=== PATIENT | male | born 1940 | race Asian ===

== ENCOUNTER 2020-04-29 23:01 | Inpatient (IN) | payer OTHER ==
[~2020-04-29] VITALS: Ht 165.1 cm; Wt 54.4 kg
--- NOTE | 2020-04-29 23:10 | NUR ---
ED Nurse Note: Patient came in by ambulamce from a halfway for Anemia (Hemoglobin of 7.1), Pt is awake, alert oriented to self and place. Blood pressure elevated, in no acute distress, afebrile. skin warm and intact, respirations normal.
--- NOTE | 2020-04-29 23:16 | Emergency Room Report ---
History of Present Illness General Chief Complaint: Abnormal Labs Source: Medical Record Present Illness HPI This is an 79-year-old Frisian speaking male coming [facility]. He presents with chief complaint of abnormal lab. His hemoglobin was 7.1. Patient has no complaint. No evidence of active bleeding. No nausea vomiting or diarrhea. No fever chills. Negative Covid test on April 17. No other complaint. 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: Yes - 04/17/20 COVID-19 Screening: Negative COVID-19 COVID-19 Testing Source: [facility] Patient History Past Medical History: see triage record, old chart reviewed, HTN Past Surgical History: other Pertinent Family History: none Social History: Denies: smoking Immunizations: other Reviewed Nursing Documentation: PMH: Agreed; PSxH: Agreed Nursing Documentation-PMH Past Medical History: No History, Except For Hx Hypertension: Yes Hx Neurological Problems: Yes - dementia Review of Systems Eye: Denies: eye pain, blurred vision ENT: Denies: ear pain, nose congestion, throat swelling Respiratory: Denies: cough, shortness of breath Cardiovascular: Denies: chest pain, palpitations Gastrointestinal: Denies: abdominal pain, diarrhea, nausea, vomiting Musculoskeletal: Denies: back pain, joint pain Skin: Denies: rash Neurological: Denies: headache, numbness Endocrine: Denies: increased thirst, increased urine Hematologic/Lymphatic: Denies: easy bruising All Other Systems: negative except mentioned in HPI Physical Exam Vital Signs Date Time Temp Pulse Resp B/P (MAP) Pulse Ox O2 Delivery O2 Flow Rate FiO2 04/29/20 23:04 97.9 82 16 173/80 (111) 94 Room Air Vitals with high blood pressure Sp02 EP Interpretation: reviewed, normal General Appearance: no apparent distress, alert, Chronically Ill Head: normocephalic, atraumatic Eyes: bilateral eye PERRL, bilateral eye EOMI, bilateral eye conjunctivae pale ENT: hearing grossly normal, normal pharynx Neck: full range of motion, supple, no meningismus Respiratory: chest non-tender, lungs clear, normal breath sounds Cardiovascular #1: regular rate, rhythm, no murmur Gastrointestinal: normal bowel sounds, non tender, no mass, no organomegaly, no bruit, non-distended Musculoskeletal: back normal, normal range of motion, gait/station normal Psychiatric: mood/affect normal Medical Decision Making Diagnostic Impression: Primary Impression: Anemia Qualified Codes: D64.9 - Anemia, unspecified Additional Impressions: Hypertension Qualified Codes: I10 - Essential (primary) hypertension Hyperglycemia due to type 2 diabetes mellitus Qualified Codes: E11.65 - Type 2 diabetes mellitus with hyperglycemia ER Course Patient presents with anemia. Unknown cause. Patient received transfusion here. Will admit for further work-up. I contacted Dr. Duff for admission. Last Vital Signs Date Time Temp Pulse Resp B/P (MAP) Pulse Ox O2 Delivery O2 Flow Rate FiO2 04/29/20 23:04 97.9 82 16 173/80 (111) 94 Room Air Status: improved Disposition: ADMITTED INPATIENT Condition: Serious Stew Man MD Apr 29, 2020 23:16
[2020-04-29 23:59] LABS: BASOPHILS % (AUTO) 0.5 % (0.0-2.0); EOSINOPHILS % (AUTO) 0.7 % (0.0-3.0); HEMATOCRIT 23.9 % (42.0-52.0); HEMOGLOBIN 8.4 G/DL (14.2-18.0); LYMPHOCYTES % (AUTO) 17.5 % (20.0-45.0); MEAN CORPUSCULAR VOLUME 95 FL (80-99); MONOCYTES % (AUTO) 5.5 % (1.0-10.0); NEUTROPHILS % (AUTO) 75.8 % (45.0-75.0); PLATELET COUNT 315 K/UL (150-450); RED BLOOD COUNT 2.52 M/UL (4.70-6.10); RED CELL DISTRIBUTION WIDTH 16.8 % (11.6-14.8); WHITE BLOOD COUNT 6.4 K/UL (4.8-10.8)
[2020-04-30] VITALS (7 sets, daily range): BP systolic 151–173; BP diastolic 75–91
--- NOTE | 2020-04-30 00:05 | NUR ---
ED Nurse Note: Spoke with neeru De La Rosa from [employer], regarding patient's condition for admission.
[2020-04-30 00:07] LABS: CREATININE 1.2 MG/DL (0.55-1.30); POTASSIUM 3.9 MMOL/L (3.5-5.1)
[2020-04-30 02:50] LABS: HEMATOCRIT 20.7 % (42.0-52.0); HEMOGLOBIN 7.3 G/DL (14.2-18.0); MEAN CORPUSCULAR VOLUME 95 FL (80-99); PLATELET COUNT 290 K/UL (150-450); RED BLOOD COUNT 2.17 M/UL (4.70-6.10); RED CELL DISTRIBUTION WIDTH 16.2 % (11.6-14.8)
--- NOTE | 2020-04-30 03:34 | NUR ---
ED Nurse Note: Report given to nurse ZAHRAA Lucas.
--- NOTE | 2020-04-30 03:35 | NUR ---
TRANSFER TO FLOOR: Patient transferred to [facility] at room 421-1 via gurney,accompanied by RN and geotechnical field technician. Belongings checked and given to RN. Patient transferred to bed safely. Endorsed to RN.
--- NOTE | 2020-04-30 03:36 | NUR ---
NURSE NOTES: Received telephone report from Parris VITAL from ER.
--- NOTE | 2020-04-30 03:50 | NUR ---
NURSE NOTES: Patient was transported by gurney. VS stable except BP (160s/90s). Belongings checked. Oriented to hospital room. Skin is intact with second RN. Patient is getting blood bag. No symptoms of side effects. No pain or distress noted. Larry intact and draining well. IV right and left AC both intact and patent with PRBC running on right AC. Bed low and locked. Call light within reach. Will continue to monitor
[2020-04-30] MEDS ORDERED: ACTOS15 MG ORAL (04:45)
[2020-04-30] MEDS ORDERED: SERTRALINE HCL25 MG ORAL (04:45)
[2020-04-30] MEDS ORDERED: LIPITOR80 MG ORAL (04:45)
[2020-04-30] MEDS ORDERED: LOSARTAN POTASS25 MG ORAL (04:45)
[2020-04-30] MEDS ORDERED: DONEPEZIL HCL10 MG ORAL (04:45)
[2020-04-30] MEDS ORDERED: FLOMAX0.4 MG ORAL (04:45)
[2020-04-30] MEDS ORDERED: ELIQUIS2.5 MG ORAL (04:45)
[2020-04-30] MEDS ORDERED: NAMENDA10 MG ORAL (04:45)
[2020-04-30] MEDS ORDERED: LINZESS290 MCG PO (04:45)
[2020-04-30] MEDS ORDERED: HUMALOG100 UNIT/1 SUBQ (04:52)
[2020-04-30] MEDS ORDERED: NovoLOG Insulin Flexpen SUBQ SCH ×2 (06:00→06:30)
[2020-04-30] MEDS: NovoLOG Insulin Flexpen SUBQ SCH ×4 (06:20→23:09)
--- NOTE | 2020-04-30 06:25 | NUR ---
NURSE NOTES: Patient finished the first bag of blood. No adverse effect. Will hang second bag.
--- NOTE | 2020-04-30 07:25 | NUR ---
NURSE NOTES: Received pt from ZAHRAA Lucas, pt was resting comfortably, receiving Blood transfusion 200ml/hr, no reaction will monitor, call light w/in reach.
--- NOTE | 2020-04-30 07:30 | NUR ---
NURSE HAND-OFF: Important Events on Shift: Admission, 2 PRBC Patient Status: Stable Diet: CCHO (medium) Pending Orders: [] Pending Results/Labs:[] Pending MD notification:[] Latest Vital Signs: Temperature 97.7 , Pulse 84 , B/P 162 /91 , Respiratory Rate 18 , O2 SAT 98 , Room Air, O2 Flow Rate . Vital Sign Comment: VS stable Latest Pierce Fall Score: 45 Fall Risk: High Risk Safety Measures: Call light Within Reach, Bed Alarm Zone 1, Side Rails Side Rails x2, Bed position Low and Locked. Fall Precautions: Yellow Socks Door Sign Patient Fall Education Report given to Hang VITAL.
--- NOTE | 2020-04-30 08:02 | History & Physical ---
History of Present Illness General Reason for Hospitalization: Abnormal Labs Present Illness HPI HISTORY OF PRESENT ILLNESS: This is an 79-year-old male with history of hypertension who was sent into ED from SNF for evaluation of low hemoglobin. His initial laboratory studies revealed that his hemoglobin was 7.1 on arrival. Patient has no complaints. Patient was reported to test negative for COVID-19 test on 04/17/2020. He received 2 units of transfusions and his hemoglobin improved at this point. He was admitted to the hospital for further management and work-up. He was found to be having persistent hiccups. We will order chest x-ray for evaluation. PAST MEDICAL HISTORY: Hypertension MEDICATIONS: Eliquis, atorvastatin, donepezil, insulin, linaclotide, losartan, memantine, pioglitazone, sertraline, tamsulosin ALLERGIES: No known allergies FAMILY HISTORY: Unknown PERSONAL/SOCIAL HISTORY: Residence of [facility] Allergies: Coded Allergies: No Known Allergies (Unverified , 04/29/20) COVID-19 Screening Contact w/high risk pt: No Experienced COVID-19 symptoms?: No Medication History Scheduled Apixaban (Eliquis*), 2.5 MG ORAL BID, (Reported) Atorvastatin (Lipitor), 40 MG ORAL BEDTIME, (Reported) Donepezil Hcl* (Donepezil Hcl*), 10 MG ORAL BID, (Reported) Losartan Potassium* (Losartan Potassium*), 25 MG ORAL DAILY, (Reported) Memantine Hcl* (Namenda*), 10 MG ORAL DAILY, (Reported) Pioglitazone Hcl* (Actos*), 15 MG ORAL DAILY, (Reported) Sertraline Hcl* (Sertraline Hcl*), 25 MG ORAL DAILY, (Reported) Tamsulosin HCl (Flomax), 0.4 MG ORAL DAILY, (Reported) Miscellaneous Medications Insulin Lispro (Humalog), 0 SUBQ, (Reported) Linaclotide (Linzess), 290 MCG PO, (Reported) Patient History Healthcare decision maker Resuscitation status Advanced Directive on File Review of Systems Review of Symptoms General ROS: no weight loss or fever Psychological ROS: no depression or mood changes, no memory loss Ophthalmic ROS: no visual changes or eye irritation ENT ROS: no nasal congestion, hearing loss, dizziness Allergy and Immunology ROS: no allergic symptoms or urticaria Hematological and Lymphatic ROS: no swollen glands, unusual bleeding or bruising Endocrine ROS: no polyuria, polydipsia, weight changes, temperature intolerance Respiratory ROS: no cough, shortness of breath, or wheezing Cardiovascular ROS: no chest pain or dyspnea on exertion Gastrointestinal ROS: denies abdominal pain, bright red blood in stool. Musculoskeletal ROS: no myalgias or arthralgias Neurological ROS: no TIA or stroke symptoms Dermatological ROS: no new or changing skin lesions, rashes or pruritis Physical Exam Physical Exam General appearance: alert, cooperative, no distress, appears stated age Head: Normocephalic, without obvious abnormality, atraumatic Eyes: conjunctivae/corneas clear. PERRL, EOM's intact. Fundi benign Throat: Lips, mucosa, and tongue normal. Teeth and gums normal Neck: supple, symmetrical, trachea midline, no adenopathy, thyroid: not enlarged, symmetric, no tenderness/mass/nodules, no carotid bruit and no JVD Lungs: clear to auscultation bilaterally Heart: regular rate and rhythm, S1, S2 normal, no murmur, click, rub or gallop Abdomen: soft, non-tender. Bowel sounds normal. No masses, no organomegaly Extremities: extremities normal, atraumatic, no cyanosis or edema Pulses: 2+ and symmetric Skin: Skin color, texture, turgor normal. No rashes or lesions Neurologic: Grossly normal Last 24 Hour Vital Signs Date Time Temp Pulse Resp B/P (MAP) Pulse Ox O2 Delivery O2 Flow Rate FiO2 04/30/20 07:38 Room Air 04/30/20 05:13 Room Air 04/30/20 04:00 97.7 84 18 162/91 (114) 98 04/30/20 03:46 98.4 83 16 156/59 100 Room Air 04/30/20 00:37 97.9 16 173/80 94 Room Air 04/29/20 23:04 97.9 82 16 173/80 (111) 94 Room Air Intake and Output 04/29/20 04/30/20 19:00 07:00 Intake Total 500 ml Output Total 800 ml Balance -300 ml Intake Oral 300 ml Other 200 ml Output Urine Total 800 ml # Voids 1 # Bowel Movements 1 Laboratory Tests Test 04/29/20 23:15 04/30/20 02:45 04/30/20 05:53 White Blood Count 6.4 K/UL (4.8-10.8) 7.0 K/UL (4.8-10.8) Red Blood Count 2.52 M/UL (4.70-6.10) L 2.17 M/UL (4.70-6.10) L Hemoglobin 8.4 G/DL (14.2-18.0) L 7.3 G/DL (14.2-18.0) L Hematocrit 23.9 % (42.0-52.0) L 20.7 % (42.0-52.0) L Mean Corpuscular Volume 95 FL (80-99) 95 FL (80-99) Mean Corpuscular Hemoglobin 33.5 PG (27.0-31.0) H 33.4 PG (27.0-31.0) H Mean Corpuscular Hemoglobin Concent 35.2 G/DL (32.0-36.0) 35.1 G/DL (32.0-36.0) Red Cell Distribution Width 16.8 % (11.6-14.8) H 16.2 % (11.6-14.8) H Platelet Count 315 K/UL (150-450) 290 K/UL (150-450) Mean Platelet Volume 6.3 FL (6.5-10.1) L 6.4 FL (6.5-10.1) L Neutrophils (%) (Auto) 75.8 % (45.0-75.0) H % (45.0-75.0) Lymphocytes (%) (Auto) 17.5 % (20.0-45.0) L % (20.0-45.0) Monocytes (%) (Auto) 5.5 % (1.0-10.0) % (1.0-10.0) Eosinophils (%) (Auto) 0.7 % (0.0-3.0) % (0.0-3.0) Basophils (%) (Auto) 0.5 % (0.0-2.0) % (0.0-2.0) Sodium Level 142 MMOL/L (136-145) Potassium Level 3.9 MMOL/L (3.5-5.1) Chloride Level 107 MMOL/L (98-107) Carbon Dioxide Level 29 MMOL/L (21-32) Anion Gap 6 mmol/L (5-15) Blood Urea Nitrogen 24 mg/dL (7-18) H Creatinine 1.2 MG/DL (0.55-1.30) Estimat Glomerular Filtration Rate 58.1 mL/min (>60) Glucose Level 296 MG/DL (74-106) H Calcium Level 9.0 MG/DL (8.5-10.1) Differential Total Cells Counted 100 Neutrophils % (Manual) 78 % (45-75) H Lymphocytes % (Manual) 17 % (20-45) L Monocytes % (Manual) 5 % (1-10) Eosinophils % (Manual) 0 % (0-3) Basophils % (Manual) 0 % (0-2) Band Neutrophils 0 % (0-8) Platelet Estimate Adequate Platelet Morphology Normal Anisocytosis 1+ POC Whole Blood Glucose 229 MG/DL (74-106) H Height (Feet): 5 Height (Inches): 5.00 Weight (Pounds): 120 Medications Current Medications Medications (Trade) Dose Ordered Sig/Maryam Route PRN Reason Start Time Stop Time Status Last Admin Dose Admin Acetaminophen (Tylenol) 650 mg Q6H PRN ORAL Mild Pain (Pain Scale 1-3) 04/30/20 05:00 05/30/20 04:59 Acetaminophen (Tylenol) 650 mg Q6H PRN ORAL Temp >100.5 04/30/20 05:00 05/30/20 04:59 Atorvastatin Calcium (Lipitor) 40 mg BEDTIME ORAL 04/30/20 21:00 07/29/20 20:59 Dextrose (Dextrose 50%) 25 ml Q30M PRN IV Hypoglycemia 04/30/20 05:00 07/29/20 04:59 Dextrose (Dextrose 50%) 50 ml Q30M PRN IV Hypoglycemia 04/30/20 05:00 07/29/20 04:59 Donepezil HCl (Aricept) 10 mg BID ORAL 04/30/20 09:00 05/30/20 08:59 Hydralazine HCl (Apresoline) 50 mg Q4H PRN ORAL For High Blood Pressure BP>160 04/30/20 05:00 07/29/20 04:59 Insulin Aspart (NovoLOG) Q6HR SUBQ 04/30/20 06:00 07/29/20 05:59 04/30/20 06:20 Linaclotide (Linzess) 290 mcg DAILYPRN PRN ORAL Constipation 04/30/20 05:00 07/29/20 04:59 Losartan Potassium (Cozaar) 25 mg DAILY ORAL 04/30/20 09:00 05/30/20 08:59 Memantine (Namenda) 10 mg DAILY ORAL 04/30/20 09:00 05/30/20 08:59 Pioglitazone HCl (Actos) 15 mg DAILY ORAL 04/30/20 09:00 05/30/20 08:59 Sertraline HCl (Zoloft) 25 mg DAILY ORAL 04/30/20 09:00 05/30/20 08:59 Sodium Chloride 1,000 ml @ 10 mls/hr Q24H ONCE IV 04/29/20 23:15 04/30/20 23:14 04/29/20 23:15 Tamsulosin HCl (Flomax) 0.4 mg DAILY ORAL 04/30/20 09:00 05/30/20 08:59 Assessment/Plan Diagnosis Aristes I: #Acute on chronic anemia- r/o GI bleed #HTN- accelerated #HLD #DM #dementia #BPH - admit to inpatient - prbc transfusion - monitor hemoglobin - increase losartan to 100mg daily - continue hydralazine prn - flomax - monitor hemoglobin - GI eval [facility] Hospital declaration I spent 70 minutes on this patient's case, and 35 minutes was dedicated to counseling and/or care coordination. MIPS ([employer]it-based Incentive Payment System) Applicable CPT: 47586, 99007 CHECK ALL THAT ARE MET: Measure #5 (CHF): All ages. Prescribe FELICITA/ARB upon discharge for patients with left ventricular systolic dysfunction. If not, the reason is clearly documented in the medical chart. Measure #8 (CHF): All ages. Prescribe a beta tony upon discharge for patients with left ventricular systolic dysfunction. If not, the reason is clearly documented in the medical chart. Measure #47 Advance care plan or surrogate decision maker documented in the medical record. Measure #130 The provider has documented, updated, or reviewed the patients current medication list and has documented it in the patients note. Measure #374 (All): Send report to referring provider. Measure #407(Sepsis due to MSSA bacteremia): Age 18+ Patient treated with a beta-lactam antibiotic (Nafcillin, Oxacillin or Cefazolin) as definitive therapy. MEDICAL COMPLEXITY High complexity medical decision making (need 2/3 categories) Problem - need 4 points Acute/new problem with new plan for workup (4 points, 1 max) Acute/new problem without additional workup (3 points, 1 max) Unstable chronic problem actively being managed (2 point each, 2 max) Stable chronic problem actively being managed (1 point each, 2 max) Self-limited/transient process (constipation, muscle ache, etc) (1 point each, 2 max) Data - need 4 points Reviewed labs/imaging studies (1 points, 2 max) Independent review of imaging (EKG, xrays, etc) (2 points, 2 max) Discussed case with consult/other MD/RN (2 points, 2 max) High Risk - qualify if have one of the following: Severe exacerbation of acute problem, acute mental status change, IV narcotics, monitoring drug levels (vancomycin, INR, tacrolimus etc) Hermes Duff M.D. Apr 30, 2020 08:02
[2020-04-30] MEDS ORDERED: Sertraline 50mg tab ORAL SCH (09:00)
[2020-04-30] MEDS ORDERED: Losartan 25mg tab ORAL SCH (09:00)
[2020-04-30] MEDS: Donepezil 10mg tab ORAL SCH ×2 (09:04→17:33)
[2020-04-30] MEDS: Memantine 10mg tab ORAL SCH (09:04)
[2020-04-30] MEDS: Tamsulosin 0.4mg cap ORAL SCH (09:04)
[2020-04-30] MEDS: Losartan 50mg tab ORAL SCH (09:05)
[2020-04-30 10:47] LABS: BASOPHILS % (AUTO) 0.6 % (0.0-2.0); EOSINOPHILS % (AUTO) 0.7 % (0.0-3.0); HEMOGLOBIN 11.5 G/DL (14.2-18.0); MEAN CORPUSCULAR VOLUME 91 FL (80-99); MONOCYTES % (AUTO) 5.8 % (1.0-10.0); NEUTROPHILS % (AUTO) 78.9 % (45.0-75.0); PLATELET COUNT 280 K/UL (150-450); RED BLOOD COUNT 3.84 M/UL (4.70-6.10); RED CELL DISTRIBUTION WIDTH 16.4 % (11.6-14.8); WHITE BLOOD COUNT 6.2 K/UL (4.8-10.8)
[2020-04-30 11:21] LABS: ANION GAP 7 mmol/L (5-15); BLOOD UREA NITROGEN 20 mg/dL (7-18); CALCIUM 8.6 MG/DL (8.5-10.1); CARBON DIOXIDE 26 MMOL/L (21-32); CHLORIDE 108 MMOL/L (98-107); CREATININE 0.9 MG/DL (0.55-1.30); SODIUM 141 MMOL/L (136-145)
--- NOTE | 2020-04-30 11:37 | Consultation ---
History of Present Illness General Date patient seen: Apr 30, 2020 Reason for Hospitalization: Abnormal Labs Present Illness HPI 79 year old pleasant male presented from care facility for evaluation of anemia with significant low hemoglobin of 7. admitted, transfused and surgery called to evaluate for possible gi bleed. patient seen, chart reviewed, patient examined. no n/v/f/c. denies bleeding at this time but is aaox2 only. tolerating diet. no diarrhea. no emesis. labs reviewed, exam as below. Allergies: Coded Allergies: No Known Allergies (Unverified , 04/29/20) COVID-19 Screening Contact w/high risk pt: No Experienced COVID-19 symptoms?: No Medication History Scheduled Apixaban (Eliquis*), 2.5 MG ORAL BID, (Reported) Atorvastatin (Lipitor), 40 MG ORAL BEDTIME, (Reported) Donepezil Hcl* (Donepezil Hcl*), 10 MG ORAL BID, (Reported) Losartan Potassium* (Losartan Potassium*), 25 MG ORAL DAILY, (Reported) Memantine Hcl* (Namenda*), 10 MG ORAL DAILY, (Reported) Pioglitazone Hcl* (Actos*), 15 MG ORAL DAILY, (Reported) Sertraline Hcl* (Sertraline Hcl*), 25 MG ORAL DAILY, (Reported) Tamsulosin HCl (Flomax), 0.4 MG ORAL DAILY, (Reported) Miscellaneous Medications Insulin Lispro (Humalog), 0 SUBQ, (Reported) Linaclotide (Linzess), 290 MCG PO, (Reported) Patient History Limited by: language barrier, medical condition History Provided By: Patient, Medical Record, PMD Healthcare decision maker Resuscitation status Advanced Directive on File Past Medical/Surgical History Past Medical/Surgical History: (1) GI bleed (2) Hypertension (3) Hyperglycemia due to type 2 diabetes mellitus (4) Anemia Review of Systems Review of Symptoms General ROS: no weight loss or fever Psychological ROS: no depression or mood changes, no memory loss Ophthalmic ROS: no visual changes or eye irritation ENT ROS: no nasal congestion, hearing loss, dizziness Allergy and Immunology ROS: no allergic symptoms or urticaria Hematological and Lymphatic ROS: no swollen glands, unusual bleeding or bruising Endocrine ROS: no polyuria, polydipsia, weight changes, temperature intolerance Respiratory ROS: no cough, shortness of breath, or wheezing Cardiovascular ROS: no chest pain or dyspnea on exertion Gastrointestinal ROS: denies abdominal pain, bright red blood in stool. Musculoskeletal ROS: no myalgias or arthralgias Neurological ROS: no TIA or stroke symptoms Dermatological ROS: no new or changing skin lesions, rashes or pruritis Physical Exam Physical Exam General appearance: alert, cooperative, no distress, appears stated age Head: Normocephalic, without obvious abnormality, atraumatic Eyes: conjunctivae/corneas clear. PERRL, EOM's intact. Fundi benign Throat: Lips, mucosa, and tongue normal. Teeth and gums normal Neck: supple, symmetrical, trachea midline, no adenopathy, thyroid: not enlarged, symmetric, no tenderness/mass/nodules, no carotid bruit and no JVD Lungs: clear to auscultation bilaterally Heart: regular rate and rhythm, S1, S2 normal, no murmur, click, rub or gallop Abdomen: soft, non-tender. Bowel sounds normal. No masses, no organomegaly Extremities: extremities normal, atraumatic, no cyanosis or edema Pulses: 2+ and symmetric Skin: Skin color, texture, turgor normal. No rashes or lesions Neurologic: Grossly normal Last 24 Hour Vital Signs Date Time Temp Pulse Resp B/P (MAP) Pulse Ox O2 Delivery O2 Flow Rate FiO2 04/30/20 09:05 151/76 04/30/20 07:38 Room Air 04/30/20 05:13 Room Air 04/30/20 04:00 97.7 84 18 162/91 (114) 98 04/30/20 03:46 98.4 83 16 156/59 100 Room Air 04/30/20 00:37 97.9 16 173/80 94 Room Air 04/29/20 23:04 97.9 82 16 173/80 (111) 94 Room Air Intake and Output 04/29/20 04/30/20 19:00 07:00 Intake Total 500 ml Output Total 800 ml Balance -300 ml Intake Oral 300 ml Other 200 ml Output Urine Total 800 ml # Voids 1 # Bowel Movements 1 Laboratory Tests Test 04/29/20 23:15 04/30/20 02:45 04/30/20 05:53 04/30/20 10:00 White Blood Count 6.4 K/UL (4.8-10.8) 7.0 K/UL (4.8-10.8) 6.2 K/UL (4.8-10.8) Red Blood Count 2.52 M/UL (4.70-6.10) L 2.17 M/UL (4.70-6.10) L 3.84 M/UL (4.70-6.10) L Hemoglobin 8.4 G/DL (14.2-18.0) L 7.3 G/DL (14.2-18.0) L 11.5 G/DL (14.2-18.0) #L Hematocrit 23.9 % (42.0-52.0) L 20.7 % (42.0-52.0) L 35.0 % (42.0-52.0) #L Mean Corpuscular Volume 95 FL (80-99) 95 FL (80-99) 91 FL (80-99) Mean Corpuscular Hemoglobin 33.5 PG (27.0-31.0) H 33.4 PG (27.0-31.0) H 30.1 PG (27.0-31.0) Mean Corpuscular Hemoglobin Concent 35.2 G/DL (32.0-36.0) 35.1 G/DL (32.0-36.0) 33.0 G/DL (32.0-36.0) Red Cell Distribution Width 16.8 % (11.6-14.8) H 16.2 % (11.6-14.8) H 16.4 % (11.6-14.8) H Platelet Count 315 K/UL (150-450) 290 K/UL (150-450) 280 K/UL (150-450) Mean Platelet Volume 6.3 FL (6.5-10.1) L 6.4 FL (6.5-10.1) L 5.9 FL (6.5-10.1) L Neutrophils (%) (Auto) 75.8 % (45.0-75.0) H % (45.0-75.0) 78.9 % (45.0-75.0) H Lymphocytes (%) (Auto) 17.5 % (20.0-45.0) L % (20.0-45.0) 14.0 % (20.0-45.0) L Monocytes (%) (Auto) 5.5 % (1.0-10.0) % (1.0-10.0) 5.8 % (1.0-10.0) Eosinophils (%) (Auto) 0.7 % (0.0-3.0) % (0.0-3.0) 0.7 % (0.0-3.0) Basophils (%) (Auto) 0.5 % (0.0-2.0) % (0.0-2.0) 0.6 % (0.0-2.0) Sodium Level 142 MMOL/L (136-145) 141 MMOL/L (136-145) Potassium Level 3.9 MMOL/L (3.5-5.1) 4.0 MMOL/L (3.5-5.1) Chloride Level 107 MMOL/L (98-107) 108 MMOL/L (98-107) H Carbon Dioxide Level 29 MMOL/L (21-32) 26 MMOL/L (21-32) Anion Gap 6 mmol/L (5-15) 7 mmol/L (5-15) Blood Urea Nitrogen 24 mg/dL (7-18) H 20 mg/dL (7-18) H Creatinine 1.2 MG/DL (0.55-1.30) 0.9 MG/DL (0.55-1.30) Estimat Glomerular Filtration Rate 58.1 mL/min (>60) > 60 mL/min (>60) Glucose Level 296 MG/DL (74-106) H 238 MG/DL (74-106) H Calcium Level 9.0 MG/DL (8.5-10.1) 8.6 MG/DL (8.5-10.1) Differential Total Cells Counted 100 Neutrophils % (Manual) 78 % (45-75) H Lymphocytes % (Manual) 17 % (20-45) L Monocytes % (Manual) 5 % (1-10) Eosinophils % (Manual) 0 % (0-3) Basophils % (Manual) 0 % (0-2) Band Neutrophils 0 % (0-8) Platelet Estimate Adequate Platelet Morphology Normal Anisocytosis 1+ POC Whole Blood Glucose 229 MG/DL (74-106) H Phosphorus Level 3.0 MG/DL (2.5-4.9) Magnesium Level 1.7 MG/DL (1.8-2.4) L Height (Feet): 5 Height (Inches): 5.00 Weight (Pounds): 120 Medications Current Medications Medications (Trade) Dose Ordered Sig/Maryam Route PRN Reason Start Time Stop Time Status Last Admin Dose Admin Acetaminophen (Tylenol) 650 mg Q6H PRN ORAL Mild Pain (Pain Scale 1-3) 04/30/20 05:00 05/30/20 04:59 Acetaminophen (Tylenol) 650 mg Q6H PRN ORAL Temp >100.5 04/30/20 05:00 05/30/20 04:59 Atorvastatin Calcium (Lipitor) 40 mg BEDTIME ORAL 04/30/20 21:00 07/29/20 20:59 Dextrose (Dextrose 50%) 25 ml Q30M PRN IV Hypoglycemia 04/30/20 05:00 07/29/20 04:59 Dextrose (Dextrose 50%) 50 ml Q30M PRN IV Hypoglycemia 04/30/20 05:00 07/29/20 04:59 Donepezil HCl (Aricept) 10 mg BID ORAL 04/30/20 09:00 05/30/20 08:59 04/30/20 09:04 Hydralazine HCl (Apresoline) 50 mg Q4H PRN ORAL For High Blood Pressure BP>160 04/30/20 05:00 07/29/20 04:59 Insulin Aspart (NovoLOG) Q6HR SUBQ 04/30/20 06:00 07/29/20 05:59 04/30/20 06:20 Linaclotide (Linzess) 290 mcg DAILYPRN PRN ORAL Constipation 04/30/20 05:00 07/29/20 04:59 Losartan Potassium (Cozaar) 100 mg DAILY ORAL 04/30/20 09:00 05/30/20 08:59 04/30/20 09:05 Memantine (Namenda) 10 mg DAILY ORAL 04/30/20 09:00 05/30/20 08:59 04/30/20 09:04 Pioglitazone HCl (Actos) 15 mg DAILY ORAL 04/30/20 09:00 05/30/20 08:59 04/30/20 09:04 Sertraline HCl (Zoloft) 25 mg DAILY ORAL 04/30/20 09:00 05/30/20 08:59 Sodium Chloride 1,000 ml @ 10 mls/hr Q24H ONCE IV 04/29/20 23:15 04/30/20 23:14 04/29/20 23:15 Tamsulosin HCl (Flomax) 0.4 mg DAILY ORAL 04/30/20 09:00 05/30/20 08:59 04/30/20 09:04 Assessment/Plan Problem List: (1) Hypertension ICD Codes: I10 - Essential (primary) hypertension SNOMED: 02476672, [id number] Qualifiers: Qualified Codes: I10 - Essential (primary) hypertension (2) Hyperglycemia due to type 2 diabetes mellitus ICD Codes: E11.65 - Type 2 diabetes mellitus with hyperglycemia SNOMED: [id number], [id number] Qualifiers: Qualified Codes: E11.65 - Type 2 diabetes mellitus with hyperglycemia (3) Anemia ICD Codes: D64.9 - Anemia, unspecified SNOMED: [id number] Qualifiers: Qualified Codes: D64.9 - Anemia, unspecified (4) GI bleed Assessment & Plan: 79M with significant anemia. as per report history of guiac positive afebrile, HD stable rectal exam without gross blood. transfused prbc and improved comfortable no complaints tolerating diet GI eval for colonoscopy/egd? okay for diet will follow with exam and recs trend labs thank you ICD Codes: K92.2 - Gastrointestinal hemorrhage, unspecified SNOMED: [id number] Arnoldo Oropeza Apr 30, 2020 11:37
[2020-04-30] MEDS: Sertraline 100mg tab ORAL SCH (12:12)
--- NOTE | 2020-04-30 13:25 | Consultation ---
Consult Note Consult Note DATE OF CONSULTATION: 04/30/2020 CONSULTING PHYSICIAN: Gigi Altamirano MD. ATTENDING PHYSICIAN: Dr. Duff REASON FOR CONSULTATION: singultus HISTORY OF PRESENT ILLNESS: This is an 79-year-old male with history of hypertension who was sent into ED from SNF for evaluation of low hemoglobin. His initial laboratory studies revealed that his hemoglobin was 7.1 on arrival. Patient has no complaints. Patient was reported to test negative for COVID-19 test on 04/17/2020. He received 2 units of transfusions and his hemoglobin improved at this point. He was admitted to the hospital for further management and work-up. He was found to be having persistent hiccups. We will order chest x-ray for evaluation. PAST MEDICAL HISTORY: Hypertension MEDICATIONS: Eliquis, atorvastatin, donepezil, insulin, linaclotide, losartan, memantine, pioglitazone, sertraline, tamsulosin ALLERGIES: No known allergies FAMILY HISTORY: Unknown PERSONAL/SOCIAL HISTORY: Residence of [facility] REVIEW OF SYSTEMS: Negative except mentioned in HPI PHYSICAL EXAMINATION: VITAL SIGNS: Blood pressure 151/76, heart rate 79, respiratory rate 18, weight 54 kg, height 165 cm General: Appears NAD in bed with normal work of breathing on room air, persistent hiccups HEENT: Head exam reveals that the head is normocephalic, atraumatic without deformity or unusual swelling. Pupils are PERRLA. CHEST AND LUNGS: Reveals clear, normal, symmetrical breath sounds with no adventitious sounds. CARDIOVASCULAR: Reveals normal S1, S2 without murmurs, rubs, or clicks. ABDOMEN: Soft with no tenderness or organomegaly. RECTAL: Deferred. MUSCULOSKELETAL: There is no tenderness to palpation. Range of motion is normal. NEUROLOGICAL: Alert and oriented x2 , nonfocal LABORATORY DATA: Laboratory testing shows Hgb was 7.3, status post 2 units PRBC, now 11.5. Chemistries show chloride 108, BUN 20, glucose 238, magnesium 1.7 Assessment/Plan 1. Anemia, history of positive guaiac -Seen by surgery -No acute GI bleed -Recommend GI consult for EGD/[place] 2. Persistent singultus -We will order chest x-ray for evaluation -Consider Thorazine if no resolution of singultus - Monitor for hypoxia and provide supplemental oxygen as needed The care for this patient was discussed with my supervising physician. Time spent for this case was approximately 31 minutes. Mikal Horne Apr 30, 2020 13:25
--- NOTE | 2020-04-30 15:07 | Diagnostic Imaging Report ---
EXAM: XR Chest, 1 View CLINICAL HISTORY: WEAK TECHNIQUE: Frontal view of the chest. COMPARISON: None FINDINGS: Hardware: None. Lungs/pleura: Left basilar opacity. No pleural effusion or pneumothorax. Heart/mediastinum: Normal. No cardiomegaly. Soft tissues: Unremarkable. Bones: No acute fracture. Upper abdomen: Normal. IMPRESSION: Left basilar opacity may represent atelectasis versus infectious/inflammatory process
--- NOTE | 2020-04-30 19:19 | NUR ---
NURSE NOTES: Patient in bed, awake, alert x2, yi speaking. Does follow simple commands, reinforcement needed. Kept clean and comfortable. Bed in low and locked position. Provided safe environment. No complaint of pain or discomfort noted. abdomen is soft and non distended. Respiration is even and unlabored. No s/s of bleeding noted. Iv site noted, iv fluid is infusing as ordered. Call light is at bedside. Will continue plan of care.
--- NOTE | 2020-04-30 19:27 | NUR ---
NURSE HAND-OFF: Important Events on Shift:N Patient Status: Diet: Pending Orders: Pending Results/Labs: Pending MD notification: Latest Vital Signs: Temperature 98.4 , Pulse 71 , B/P 158 /75 , Respiratory Rate 18 , O2 SAT 98 , Room Air, O2 Flow Rate . Vital Sign Comment: Latest Pierce Fall Score: 50 Fall Risk: High Risk Safety Measures: Call light Within Reach, Bed Alarm Zone 1, Side Rails Side Rails x2, Bed position Low and Locked. Fall Precautions: Yellow Socks Door Sign Patient Fall Education Report given to .
[2020-04-30] MEDS: Atorvastatin 20mg tab ORAL SCH (20:39)
[2020-04-30] MEDS: HydrALAZINE 50mg tab ORAL PRN (20:40)
[2020-05-01 04:00] VITALS: BP 143/77
[2020-05-01] MEDS: NovoLOG Insulin Flexpen SUBQ SCH ×3 (06:00→17:12)
[2020-05-01 06:20] LABS: BASOPHILS % (AUTO) 0.5 % (0.0-2.0); EOSINOPHILS % (AUTO) 1.1 % (0.0-3.0); HEMATOCRIT 35.4 % (42.0-52.0); HEMOGLOBIN 12.1 G/DL (14.2-18.0); LYMPHOCYTES % (AUTO) 23.2 % (20.0-45.0); MEAN CORPUSCULAR VOLUME 90 FL (80-99); MONOCYTES % (AUTO) 7.3 % (1.0-10.0); PLATELET COUNT 288 K/UL (150-450); RED BLOOD COUNT 3.93 M/UL (4.70-6.10); RED CELL DISTRIBUTION WIDTH 16.3 % (11.6-14.8); WHITE BLOOD COUNT 5.1 K/UL (4.8-10.8)
[2020-05-01 06:45] LABS: ALANINE AMINOTRANSFERASE 18 U/L (12-78); ALBUMIN 2.7 G/DL (3.4-5.0); ALBUMIN/GLOBULIN RATIO 0.6 (1.0-2.7); ALKALINE PHOSPHATASE 62 U/L (46-116); ANION GAP 9 mmol/L (5-15); ASPARTATE AMINO TRANSFERASE 20 U/L (15-37); BILIRUBIN,TOTAL 0.7 MG/DL (0.2-1.0); BLOOD UREA NITROGEN 12 mg/dL (7-18); CALCIUM 9.1 MG/DL (8.5-10.1); CARBON DIOXIDE 26 MMOL/L (21-32); CHLORIDE 106 MMOL/L (98-107); CREATININE 0.8 MG/DL (0.55-1.30); PHOSPHORUS 3.2 MG/DL (2.5-4.9); POTASSIUM 3.6 MMOL/L (3.5-5.1); SODIUM 141 MMOL/L (136-145)
--- NOTE | 2020-05-01 07:15 | NUR ---
NURSE HAND-OFF: Important Events on Shift:WNL Patient Status: Diet: CCHo Med mech soft Pending Orders: multiple labs Pending Results/Labs: Pending MD notification: Latest Vital Signs: Temperature 98.2 , Pulse 79 , B/P 143 /77 , Respiratory Rate 17 , O2 SAT 97 , Room Air, O2 Flow Rate . Vital Sign Comment: WNL Latest Pierce Fall Score: 50 Fall Risk: High Risk Safety Measures: Call light Within Reach, Bed Alarm Zone 1, Side Rails Side Rails x2, Bed position Low and Locked. Fall Precautions: Yellow Socks Door Sign Patient Fall Education Report given to ZAHRAA Hickman.
--- NOTE | 2020-05-01 07:45 | NUR ---
NURSE NOTES: Received patient in bed, awake, alert, oriented x2, romanian speaking. Able to follow simple commands, requires reinforcement. Kept clean and comfortable. Bed in lowest position possible, alarm and locked engaged. Provided safe environment. No complaint of pain or discomfort noted. abdomen is soft and non distended. Respiration is even and unlabored. No s/s of bleeding noted. PIV site patent and intact noted. skin is intact. no open wounds per assessments. kept bed in the lowest position. siderails are upx3. bed alarm engaged and lock @ all times. Call light is at bedside. Will continue plan of care.
[2020-05-01 08:00] VITALS: BP 135/90
[2020-05-01] MEDS: Tamsulosin 0.4mg cap ORAL SCH (08:02)
[2020-05-01] MEDS: Donepezil 10mg tab ORAL SCH ×2 (08:02→17:09)
[2020-05-01] MEDS: Sertraline 100mg tab ORAL SCH (08:02)
[2020-05-01] MEDS: Memantine 10mg tab ORAL SCH (08:03)
[2020-05-01] MEDS: Losartan 50mg tab ORAL SCH (08:03)
--- NOTE | 2020-05-01 11:52 | Pulmonology Progress Note ---
Subjective Interval Events: None major reported per nursing Constitutional: Reports: no symptoms HEENT: Repors: no symptoms Respiratory: Reports: no symptoms Cardiovascular: Reports: no symptoms Gastrointestinal/Abdominal: Reports: no symptoms Allergies: Coded Allergies: No Known Allergies (Unverified , 04/29/20) Objective Last 24 Hour Vital Signs Date Time Temp Pulse Resp B/P (MAP) Pulse Ox O2 Delivery O2 Flow Rate FiO2 05/01/20 09:00 Room Air 05/01/20 08:03 135/90 05/01/20 08:00 98.4 88 20 135/90 (105) 93 05/01/20 04:00 98.2 79 17 143/77 (99) 97 04/30/20 23:28 97.9 79 16 154/85 (108) 97 04/30/20 20:40 162/76 04/30/20 20:22 Room Air 04/30/20 20:00 98.1 74 18 162/76 (104) 97 04/30/20 16:00 98.4 71 18 158/75 (102) 98 04/30/20 12:00 97.2 88 18 158/85 (109) 98 Intake and Output 04/30/20 05/01/20 19:00 07:00 Intake Total 480 ml 240 ml Output Total 800 ml 1500 ml Balance -320 ml -1260 ml Intake Oral 480 ml 240 ml Output Urine Total 800 ml 1500 ml # Voids 2 # Bowel Movements 1 General Appearance: no acute distress HEENT: atraumatic Respiratory: lungs clear, other - singultus Cardiovascular: normal rate Abdomen: soft, non tender Laboratory Tests 05/01/20 05:00: White Blood Count 5.1, Red Blood Count 3.93L, Hemoglobin 12.1L, Hematocrit 35.4L , Mean Corpuscular Volume 90, Mean Corpuscular Hemoglobin 30.9, Mean Corpuscular Hemoglobin Concent 34.3, Red Cell Distribution Width 16.3H, Platelet Count 288, Mean Platelet Volume 6.1L, Neutrophils (%) (Auto) 68.0, Lymphocytes (%) (Auto) 23.2, Monocytes (%) (Auto) 7.3, Eosinophils (%) (Auto) 1.1, Basophils (%) (Auto) 0.5, Erythrocyte Sedimentation Rate 55H, Sodium Level 141, Potassium Level 3.6, Chloride Level 106, Carbon Dioxide Level 26, Anion Gap 9, Blood Urea Nitrogen 12, Creatinine 0.8, Estimat Glomerular Filtration Rate > 60, Glucose Level 125#H , Calcium Level 9.1, Phosphorus Level 3.2, Magnesium Level 2.1, Total Bilirubin 0.7, Aspartate Amino Transf (AST/SGOT) 20, Alanine Aminotransferase (ALT/SGPT) 18, Alkaline Phosphatase 62, C-Reactive Protein, Quantitative 0.6, Total Protein 7.1, Albumin 2.7L, Globulin 4.4, Albumin/Globulin Ratio 0.6L, Amylase Level 43, Lipase 213 05/01/20 07:10: Prothrombin Time 10.8, Prothromb Time International Ratio 1.0, Activated Partial Thromboplast Time 26 Current Medications Medications (Trade) Dose Ordered Sig/Maryam Route PRN Reason Start Time Stop Time Status Last Admin Dose Admin Acetaminophen (Tylenol) 650 mg Q6H PRN ORAL Mild Pain (Pain Scale 1-3) 04/30/20 05:00 05/30/20 04:59 Acetaminophen (Tylenol) 650 mg Q6H PRN ORAL Temp >100.5 04/30/20 05:00 05/30/20 04:59 Atorvastatin Calcium (Lipitor) 40 mg BEDTIME ORAL 04/30/20 21:00 07/29/20 20:59 04/30/20 20:39 Dextrose (Dextrose 50%) 25 ml Q30M PRN IV Hypoglycemia 04/30/20 05:00 07/29/20 04:59 Dextrose (Dextrose 50%) 50 ml Q30M PRN IV Hypoglycemia 04/30/20 05:00 07/29/20 04:59 Donepezil HCl (Aricept) 10 mg BID ORAL 04/30/20 09:00 05/30/20 08:59 05/01/20 08:02 Hydralazine HCl (Apresoline) 50 mg Q4H PRN ORAL For High Blood Pressure BP>160 04/30/20 05:00 07/29/20 04:59 04/30/20 20:40 Insulin Aspart (NovoLOG) Q6HR SUBQ 04/30/20 06:00 07/29/20 05:59 04/30/20 23:09 Linaclotide (Linzess) 290 mcg DAILYPRN PRN ORAL Constipation 04/30/20 05:00 07/29/20 04:59 Losartan Potassium (Cozaar) 100 mg DAILY ORAL 04/30/20 09:00 05/30/20 08:59 05/01/20 08:03 Memantine (Namenda) 10 mg DAILY ORAL 04/30/20 09:00 05/30/20 08:59 05/01/20 08:03 Pioglitazone HCl (Actos) 15 mg DAILY ORAL 04/30/20 09:00 05/30/20 08:59 05/01/20 08:02 Sertraline HCl (Zoloft) 25 mg DAILY ORAL 04/30/20 09:00 05/30/20 08:59 05/01/20 08:02 Tamsulosin HCl (Flomax) 0.4 mg DAILY ORAL 04/30/20 09:00 05/30/20 08:59 05/01/20 08:02 Assessment/Plan Assessment/Plan 1. Anemia, history of positive guaiac -Seen by surgery -No acute GI bleed - s/p transfusion, now stable H&H -Recommend GI consult for further evaluation 2. Persistent singultus -We will order chest x-ray for evaluation -> CXR atelectasis -Consider Thorazine if no resolution of singultus -> will hold for now - Monitor for hypoxia and provide supplemental oxygen as needed 3. Atelectasis on chest x-ray -Given normoxemia, monitor for now The care for this patient was discussed with my supervising physician. Time spent for this case was approximately 31 minutes. Mikal Horne May 01, 2020 11:52
[2020-05-01 12:00] VITALS: BP 155/84
--- NOTE | 2020-05-01 12:28 | Surgery Progress Note ---
Surgery Progress Note Subjective Symptoms: improved, tolerating diet, passing flatus Objective Last 24 Hour Vital Signs Date Time Temp Pulse Resp B/P (MAP) Pulse Ox O2 Delivery O2 Flow Rate FiO2 05/01/20 12:00 98.0 82 19 155/84 (107) 96 05/01/20 09:00 Room Air 05/01/20 08:03 135/90 05/01/20 08:00 98.4 88 20 135/90 (105) 93 05/01/20 04:00 98.2 79 17 143/77 (99) 97 04/30/20 23:28 97.9 79 16 154/85 (108) 97 04/30/20 20:40 162/76 04/30/20 20:22 Room Air 04/30/20 20:00 98.1 74 18 162/76 (104) 97 04/30/20 16:00 98.4 71 18 158/75 (102) 98 I&O Intake and Output 04/30/20 05/01/20 19:00 07:00 Intake Total 480 ml 240 ml Output Total 800 ml 1500 ml Balance -320 ml -1260 ml Intake Oral 480 ml 240 ml Output Urine Total 800 ml 1500 ml # Voids 2 # Bowel Movements 1 Cardiovascular: RSR Respiratory: clear Abdomen: soft, flat, non-tender, present bowel sounds Extremities: no edema, no tenderness, no cyanosis Laboratory Tests Test 05/01/20 05:00 05/01/20 07:10 White Blood Count 5.1 K/UL (4.8-10.8) Red Blood Count 3.93 M/UL (4.70-6.10) L Hemoglobin 12.1 G/DL (14.2-18.0) L Hematocrit 35.4 % (42.0-52.0) L Mean Corpuscular Volume 90 FL (80-99) Mean Corpuscular Hemoglobin 30.9 PG (27.0-31.0) Mean Corpuscular Hemoglobin Concent 34.3 G/DL (32.0-36.0) Red Cell Distribution Width 16.3 % (11.6-14.8) H Platelet Count 288 K/UL (150-450) Mean Platelet Volume 6.1 FL (6.5-10.1) L Neutrophils (%) (Auto) 68.0 % (45.0-75.0) Lymphocytes (%) (Auto) 23.2 % (20.0-45.0) Monocytes (%) (Auto) 7.3 % (1.0-10.0) Eosinophils (%) (Auto) 1.1 % (0.0-3.0) Basophils (%) (Auto) 0.5 % (0.0-2.0) Erythrocyte Sedimentation Rate 55 MM/HR (0-20) H Sodium Level 141 MMOL/L (136-145) Potassium Level 3.6 MMOL/L (3.5-5.1) Chloride Level 106 MMOL/L (98-107) Carbon Dioxide Level 26 MMOL/L (21-32) Anion Gap 9 mmol/L (5-15) Blood Urea Nitrogen 12 mg/dL (7-18) Creatinine 0.8 MG/DL (0.55-1.30) Estimat Glomerular Filtration Rate > 60 mL/min (>60) Glucose Level 125 MG/DL (74-106) #H Calcium Level 9.1 MG/DL (8.5-10.1) Phosphorus Level 3.2 MG/DL (2.5-4.9) Magnesium Level 2.1 MG/DL (1.8-2.4) Total Bilirubin 0.7 MG/DL (0.2-1.0) Aspartate Amino Transf (AST/SGOT) 20 U/L (15-37) Alanine Aminotransferase (ALT/SGPT) 18 U/L (12-78) Alkaline Phosphatase 62 U/L (46-116) C-Reactive Protein, Quantitative 0.6 mg/dL (0.00-0.90) Total Protein 7.1 G/DL (6.4-8.2) Albumin 2.7 G/DL (3.4-5.0) L Globulin 4.4 g/dL Albumin/Globulin Ratio 0.6 (1.0-2.7) L Amylase Level 43 U/L (25-115) Lipase 213 U/L (73-393) Prothrombin Time 10.8 SEC (9.30-11.50) Prothromb Time International Ratio 1.0 (0.9-1.1) Activated Partial Thromboplast Time 26 SEC (23-33) Plan Problems: (1) Hypertension (2) Hyperglycemia due to type 2 diabetes mellitus (3) Anemia (4) GI bleed Assessment & Plan: 79M with significant anemia. as per report history of guiac positive afebrile, HD stable rectal exam without gross blood. transfused prbc and improved comfortable no complaints tolerating diet GI eval for colonoscopy/egd? okay for diet will follow with exam and recs trend labs thank you Arnoldo Oropeza May 01, 2020 12:28
--- NOTE | 2020-05-01 13:00 | Internal Med Progress Note ---
Subjective Physician Name Hermes Duff Attending Physician Hermes Duff M.D. Current Medications Medications (Trade) Dose Ordered Sig/Amryam Route PRN Reason Start Time Stop Time Status Last Admin Dose Admin Acetaminophen (Tylenol) 650 mg Q6H PRN ORAL Mild Pain (Pain Scale 1-3) 04/30/20 05:00 05/30/20 04:59 Acetaminophen (Tylenol) 650 mg Q6H PRN ORAL Temp >100.5 04/30/20 05:00 05/30/20 04:59 Atorvastatin Calcium (Lipitor) 40 mg BEDTIME ORAL 04/30/20 21:00 07/29/20 20:59 04/30/20 20:39 Dextrose (Dextrose 50%) 25 ml Q30M PRN IV Hypoglycemia 04/30/20 05:00 07/29/20 04:59 Dextrose (Dextrose 50%) 50 ml Q30M PRN IV Hypoglycemia 04/30/20 05:00 07/29/20 04:59 Donepezil HCl (Aricept) 10 mg BID ORAL 04/30/20 09:00 05/30/20 08:59 05/01/20 08:02 Hydralazine HCl (Apresoline) 50 mg Q4H PRN ORAL For High Blood Pressure BP>160 04/30/20 05:00 07/29/20 04:59 04/30/20 20:40 Insulin Aspart (NovoLOG) Q6HR SUBQ 04/30/20 06:00 07/29/20 05:59 05/01/20 11:58 Linaclotide (Linzess) 290 mcg DAILYPRN PRN ORAL Constipation 04/30/20 05:00 07/29/20 04:59 Losartan Potassium (Cozaar) 100 mg DAILY ORAL 04/30/20 09:00 05/30/20 08:59 05/01/20 08:03 Memantine (Namenda) 10 mg DAILY ORAL 04/30/20 09:00 05/30/20 08:59 05/01/20 08:03 Pioglitazone HCl (Actos) 15 mg DAILY ORAL 04/30/20 09:00 05/30/20 08:59 05/01/20 08:02 Sertraline HCl (Zoloft) 25 mg DAILY ORAL 04/30/20 09:00 05/30/20 08:59 05/01/20 08:02 Tamsulosin HCl (Flomax) 0.4 mg DAILY ORAL 04/30/20 09:00 05/30/20 08:59 05/01/20 08:02 Allergies: Coded Allergies: No Known Allergies (Unverified , 04/29/20) ROS Limited/Unobtainable: No Constitutional: Reports: weakness HEENT: Denies: no symptoms, eye pain, blurred vision, tearing, double vision, ear pain, ear discharge, nose pain, nose congestion, throat pain, throat swelling, mouth pain, mouth swelling, other Cardiovascular: Denies: no symptoms, chest pain, edema, irregular heart rate, lightheadedness, palpitations, syncope, other Respiratory: Denies: no symptoms, cough, orthopnea, shortness of breath, SOB with excertion, SOB at rest, sputum, stridor, wheezing, other Gastrointestinal/Abdominal: Denies: no symptoms, abdomen distended, abdominal pain, black stools, tarry stools, blood in stool, constipated, diarrhea, difficulty swallowing, nausea, poor appetite, poor fluid intake, rectal bleeding, vomiting, other Genitourinary: Denies: no symptoms, burning, discharge, frequency, flank pain, hematuria, incontinence, pain, urgency, other Neurologic/Psychiatric: Denies: no symptoms, anxiety, depressed, emotional problems, headache, numbness, paresthesia, pre-existing deficit, seizure, tingling, tremors, weakness, other Subjective hemoglobin stable FOBT sent Gi consulted Objective Last Vital Signs Date Time Temp Pulse Resp B/P (MAP) Pulse Ox O2 Delivery O2 Flow Rate FiO2 05/01/20 12:00 98.0 82 19 155/84 (107) 96 05/01/20 09:00 Room Air Laboratory Tests Test 05/01/20 05:00 05/01/20 07:10 White Blood Count 5.1 K/UL (4.8-10.8) Red Blood Count 3.93 M/UL (4.70-6.10) L Hemoglobin 12.1 G/DL (14.2-18.0) L Hematocrit 35.4 % (42.0-52.0) L Mean Corpuscular Volume 90 FL (80-99) Mean Corpuscular Hemoglobin 30.9 PG (27.0-31.0) Mean Corpuscular Hemoglobin Concent 34.3 G/DL (32.0-36.0) Red Cell Distribution Width 16.3 % (11.6-14.8) H Platelet Count 288 K/UL (150-450) Mean Platelet Volume 6.1 FL (6.5-10.1) L Neutrophils (%) (Auto) 68.0 % (45.0-75.0) Lymphocytes (%) (Auto) 23.2 % (20.0-45.0) Monocytes (%) (Auto) 7.3 % (1.0-10.0) Eosinophils (%) (Auto) 1.1 % (0.0-3.0) Basophils (%) (Auto) 0.5 % (0.0-2.0) Erythrocyte Sedimentation Rate 55 MM/HR (0-20) H Sodium Level 141 MMOL/L (136-145) Potassium Level 3.6 MMOL/L (3.5-5.1) Chloride Level 106 MMOL/L (98-107) Carbon Dioxide Level 26 MMOL/L (21-32) Anion Gap 9 mmol/L (5-15) Blood Urea Nitrogen 12 mg/dL (7-18) Creatinine 0.8 MG/DL (0.55-1.30) Estimat Glomerular Filtration Rate > 60 mL/min (>60) Glucose Level 125 MG/DL (74-106) #H Calcium Level 9.1 MG/DL (8.5-10.1) Phosphorus Level 3.2 MG/DL (2.5-4.9) Magnesium Level 2.1 MG/DL (1.8-2.4) Total Bilirubin 0.7 MG/DL (0.2-1.0) Aspartate Amino Transf (AST/SGOT) 20 U/L (15-37) Alanine Aminotransferase (ALT/SGPT) 18 U/L (12-78) Alkaline Phosphatase 62 U/L (46-116) C-Reactive Protein, Quantitative 0.6 mg/dL (0.00-0.90) Total Protein 7.1 G/DL (6.4-8.2) Albumin 2.7 G/DL (3.4-5.0) L Globulin 4.4 g/dL Albumin/Globulin Ratio 0.6 (1.0-2.7) L Amylase Level 43 U/L (25-115) Lipase 213 U/L (73-393) Prothrombin Time 10.8 SEC (9.30-11.50) Prothromb Time International Ratio 1.0 (0.9-1.1) Activated Partial Thromboplast Time 26 SEC (23-33) Intake and Output 04/30/20 05/01/20 19:00 07:00 Intake Total 480 ml 240 ml Output Total 800 ml 1500 ml Balance -320 ml -1260 ml Intake Oral 480 ml 240 ml Output Urine Total 800 ml 1500 ml # Voids 2 # Bowel Movements 1 Objective General appearance: no distress Head: Normocephalic, without obvious abnormality, atraumatic Eyes: conjunctivae/corneas clear. PERRL, EOM's intact. Fundi benign Throat: Lips, mucosa, and tongue normal. Teeth and gums normal Neck: supple, symmetrical, trachea midline, no adenopathy, thyroid: not enlarged, symmetric, no tenderness/mass/nodules, no carotid bruit and no JVD Lungs: clear to auscultation bilaterally Heart: regular rate and rhythm, S1, S2 normal, no murmur, click, rub or gallop Abdomen: soft, non-tender. Bowel sounds normal. No masses, no organomegaly Extremities: extremities normal, atraumatic, no cyanosis or edema Pulses: 2+ and symmetric Skin: Skin color, texture, turgor normal. No rashes or lesions Neurologic: Grossly normal Assessment/Plan Assessment/Plan #Acute on chronic anemia- r/o GI bleed #HTN- accelerated #HLD #DM #dementia #BPH - admit to inpatient - prbc transfusion - monitor hemoglobin - increase losartan to 100mg daily - continue hydralazine prn - flomax - monitor hemoglobin - GI Hermes Sommers M.D. May 01, 2020 13:00
[2020-05-01 16:06] VITALS: BP 126/82
--- NOTE | 2020-05-01 16:31 | NUR ---
NURSE NOTES: SENT STOOL SPECIMEN SENT TO LAB FOR OB, FECAL 1A. WILL CONT TO MONITOR.
--- NOTE | 2020-05-01 19:36 | NUR ---
NURSE HAND-OFF: Important Events on Shift:[safety measures] Patient Status: [stable] Diet: [ccho med] Pending Orders: [labs] Pending Results/Labs:[am] Pending MD notification:[] Latest Vital Signs: Temperature 98.4 , Pulse 96 , B/P 126 /82 , Respiratory Rate 18 , O2 SAT 94 , Room Air, O2 Flow Rate . Vital Sign Comment: [] Latest Pierce Fall Score: 50 Fall Risk: High Risk Safety Measures: Call light Within Reach, Bed Alarm Zone 2, Side Rails Side Rails x3, Bed position Low and Locked. Fall Precautions: Yellow Socks Door Sign Patient Fall Education Report given to [diego].
[2020-05-01 20:00] VITALS: BP 142/75
--- NOTE | 2020-05-01 20:11 | NUR ---
NURSES NOTE: Pt in bed, Polish speaker. Pt is able to answer some simple questions appropriately. No outward s/s of distress noted. Breathing is even and unlabored on RA. Larry in place, draining to gravity. IV site intact, no redness or swelling noted. All due medications will be administered. Bed at lowest level. Alarm engaged. Pt will continue to be monitored.
[2020-05-01] MEDS: Atorvastatin 20mg tab ORAL SCH (20:49)
[2020-05-02] VITALS: BP 131/76
[2020-05-02] MEDS: NovoLOG Insulin Flexpen SUBQ SCH ×5 (01:03→23:20)
[2020-05-02 04:00] VITALS: BP 141/67
[2020-05-02 05:45] LABS: BASOPHILS % (AUTO) 0.6 % (0.0-2.0); EOSINOPHILS % (AUTO) 1.1 % (0.0-3.0); HEMATOCRIT 35.4 % (42.0-52.0); HEMOGLOBIN 11.8 G/DL (14.2-18.0); LYMPHOCYTES % (AUTO) 26.7 % (20.0-45.0); MEAN CORPUSCULAR VOLUME 92 FL (80-99); MONOCYTES % (AUTO) 7.4 % (1.0-10.0); NEUTROPHILS % (AUTO) 64.3 % (45.0-75.0); PLATELET COUNT 299 K/UL (150-450); RED BLOOD COUNT 3.86 M/UL (4.70-6.10); RED CELL DISTRIBUTION WIDTH 16.3 % (11.6-14.8); WHITE BLOOD COUNT 4.2 K/UL (4.8-10.8)
[2020-05-02 06:09] LABS: % IRON SATURATION 37 % (15-50); IRON 85 ug/dL (50-175); TOTAL IRON BINDING CAPACITY 228 ug/dL (250-450)
[2020-05-02 06:17] LABS: ANION GAP 8 mmol/L (5-15); BLOOD UREA NITROGEN 15 mg/dL (7-18); CARBON DIOXIDE 26 MMOL/L (21-32); CHLORIDE 107 MMOL/L (98-107); CREATININE 0.9 MG/DL (0.55-1.30); FERRITIN 449 NG/ML (8-388); PHOSPHORUS 3.2 MG/DL (2.5-4.9); POTASSIUM 3.9 MMOL/L (3.5-5.1); SODIUM 141 MMOL/L (136-145)
[2020-05-02 08:00] VITALS: BP 127/72
--- NOTE | 2020-05-02 08:00 | NUR ---
NURSE HAND-OFF: Important Events on Shift:[N/A] Patient Status: [STABLE] Diet: [CCHO MEDIUM MECH SOFT] Pending Orders: [N/A] Pending Results/Labs:[N/A] Pending MD notification:[N/A] Latest Vital Signs: Temperature 97.4 , Pulse 92 , B/P 141 /67 , Respiratory Rate 20 , O2 SAT 94 , Room Air, O2 Flow Rate . Vital Sign Comment: [WNL] Latest Pierce Fall Score: 50 Fall Risk: High Risk Safety Measures: Call light Within Reach, Bed Alarm Zone 2, Side Rails Side Rails x3, Bed position Low and Locked. Fall Precautions: Yellow Socks Door Sign Patient Fall Education Report given to [ZAHRAA CHAVEZ].
--- NOTE | 2020-05-02 08:01 | NUR ---
NURSE NOTES: Received report from ZAHRAA Orta. Rounding done with outgoing nurse. Pt is asleep. No SOB noted. Lt FA IV is in placed. Bed in lowest position, call light within reach. Will continue to monitor.
[2020-05-02] MEDS: Memantine 10mg tab ORAL SCH (09:10)
[2020-05-02] MEDS: Tamsulosin 0.4mg cap ORAL SCH (09:10)
[2020-05-02] MEDS: Donepezil 10mg tab ORAL SCH ×2 (09:10→17:30)
[2020-05-02] MEDS: Sertraline 100mg tab ORAL SCH (09:10)
[2020-05-02] MEDS: Losartan 50mg tab ORAL SCH (09:11)
--- NOTE | 2020-05-02 09:27 | NUR ---
CASE MANAGEMENT:REVIEW 79 YR OLD [facility] CC: ABNORMAL LABS SI: ANEMIA. HTN. HYPERGLYCEMIA 97.8 82 16 173/80 94% ON RA H/H-8.4/23.9 BUN+24 IS: 1L NS BOLUS INSULIN SQ TYPE/SCREEN : TO MED/SURG UNIT 04/30/20 SI: H/H-7.3/20.7 IS: TRANSFUSE 2 UNITS PRBC'S : MED/SURG UNIT
--- NOTE | 2020-05-02 09:47 | Pulmonology Progress Note ---
Subjective ROS Limited/Unobtainable: No Interval Events: None major reported per nursing Constitutional: Reports: no symptoms HEENT: Repors: no symptoms Respiratory: Reports: no symptoms Cardiovascular: Reports: no symptoms Gastrointestinal/Abdominal: Reports: no symptoms Allergies: Coded Allergies: No Known Allergies (Unverified , 04/29/20) Objective Last 24 Hour Vital Signs Date Time Temp Pulse Resp B/P (MAP) Pulse Ox O2 Delivery O2 Flow Rate FiO2 05/02/20 09:11 127/72 05/02/20 08:00 98.0 86 20 127/72 (90) 90 05/02/20 04:00 97.4 92 20 141/67 (91) 94 05/02/20 00:00 97.8 95 20 131/76 (94) 94 05/01/20 21:00 Room Air 05/01/20 20:00 97.2 89 20 142/75 (97) 96 05/01/20 16:06 98.4 96 18 126/82 (97) 94 05/01/20 12:00 98.0 82 19 155/84 (107) 96 Intake and Output 05/01/20 05/02/20 19:00 07:00 Intake Total 360 ml 120 ml Output Total 1450 ml Balance 360 ml -1330 ml Intake Oral 360 ml 120 ml Output Urine Total 1450 ml # Voids 3 # Bowel Movements 1 1 General Appearance: no acute distress HEENT: atraumatic Respiratory: lungs clear, other - singultus; resolved Cardiovascular: normal rate Abdomen: soft, non tender Microbiology Date/Time Source Procedure Growth Status 04/30/20 03:23 Rectum - Final NO CARBAPENEM-RESISTANT ENTEROBACTERI... Complete 04/30/20 03:23 Rectum VRE Culture - Final NO VANCOMYCIN RESISTANT ENTEROCOCCUS ... Complete 04/30/20 03:23 Nasal Nares MRSA Culture - Final NO METHICILLIN RESISTANT STAPH AUREUS... Complete Laboratory Tests 05/01/20 16:25: Stool Occult Blood [Pending] 05/02/20 01:00: POC Whole Blood Glucose 181H 05/02/20 05:15: White Blood Count 4.2L, Red Blood Count 3.86L, Hemoglobin 11.8L, Hematocrit 35.4L, Mean Corpuscular Volume 92, Mean Corpuscular Hemoglobin 30.6, Mean Corpu scular Hemoglobin Concent 33.4, Red Cell Distribution Width 16.3H, Platelet Count 299, Mean Platelet Volume 6.4L, Neutrophils (%) (Auto) 64.3, Lymphocytes (%) (Auto) 26.7, Monocytes (%) (Auto) 7.4, Eosinophils (%) (Auto) 1.1, Basophils (%) (Auto) 0.6, Sodium Level 141, Potassium Level 3.9, Chloride Level 107, Carbon Dioxide Level 26, Anion Gap 8, Blood Urea Nitrogen 15, Creatinine 0.9, Estimat Glomerular Filtration Rate > 60, Glucose Level 185H, Calcium Level 9.0, Phosphorus Level 3.2, Magnesium Level 2.0, Iron Level 85, Total Iron Binding Capacity 228L, Percent Iron Saturation 37, Unsaturated Iron Binding 143, Ferritin 449H, Vitamin B12 Level 864, Folate 19.6 05/02/20 06:21: POC Whole Blood Glucose 172H Current Medications Medications (Trade) Dose Ordered Sig/Maryam Route PRN Reason Start Time Stop Time Status Last Admin Dose Admin Acetaminophen (Tylenol) 650 mg Q6H PRN ORAL Mild Pain (Pain Scale 1-3) 04/30/20 05:00 05/30/20 04:59 Acetaminophen (Tylenol) 650 mg Q6H PRN ORAL Temp >100.5 04/30/20 05:00 05/30/20 04:59 Atorvastatin Calcium (Lipitor) 40 mg BEDTIME ORAL 04/30/20 21:00 07/29/20 20:59 05/01/20 20:49 Dextrose (Dextrose 50%) 25 ml Q30M PRN IV Hypoglycemia 04/30/20 05:00 07/29/20 04:59 Dextrose (Dextrose 50%) 50 ml Q30M PRN IV Hypoglycemia 04/30/20 05:00 07/29/20 04:59 Donepezil HCl (Aricept) 10 mg BID ORAL 04/30/20 09:00 05/30/20 08:59 05/02/20 09:10 Hydralazine HCl (Apresoline) 50 mg Q4H PRN ORAL For High Blood Pressure BP>160 04/30/20 05:00 07/29/20 04:59 04/30/20 20:40 Insulin Aspart (NovoLOG) Q6HR SUBQ 04/30/20 06:00 07/29/20 05:59 05/02/20 06:22 Linaclotide (Linzess) 290 mcg DAILYPRN PRN ORAL Constipation 04/30/20 05:00 07/29/20 04:59 05/01/20 17:09 Losartan Potassium (Cozaar) 100 mg DAILY ORAL 04/30/20 09:00 05/30/20 08:59 05/02/20 09:11 Memantine (Namenda) 10 mg DAILY ORAL 04/30/20 09:00 05/30/20 08:59 05/02/20 09:10 Pioglitazone HCl (Actos) 15 mg DAILY ORAL 04/30/20 09:00 05/30/20 08:59 05/02/20 09:10 Sertraline HCl (Zoloft) 25 mg DAILY ORAL 04/30/20 09:00 05/30/20 08:59 05/02/20 09:10 Tamsulosin HCl (Flomax) 0.4 mg DAILY ORAL 04/30/20 09:00 05/30/20 08:59 05/02/20 09:10 Assessment/Plan Assessment/Plan 1. Anemia, history of positive guaiac -Seen by surgery -No acute GI bleed - s/p transfusion, now stable H&H -Recommend GI consult for further evaluation - stool OB pending 2. Persistent singultus; resolved -We will order chest x-ray for evaluation -> CXR atelectasis -Consider Thorazine if no resolution of singultus -> will hold for now - Monitor for hypoxia and provide supplemental oxygen as needed 3. Atelectasis on chest x-ray -Given normoxemia, monitor for now Medically stable from pulmonary standpoint The care for this patient was discussed with my supervising physician. Time spent for this case was approximately 31 minutes. Mikal Horne May 02, 2020 09:47
--- NOTE | 2020-05-02 10:19 | Internal Med Progress Note ---
Subjective Physician Name Hermes Duff Attending Physician Hermes Duff M.D. Current Medications Medications (Trade) Dose Ordered Sig/Maryam Route PRN Reason Start Time Stop Time Status Last Admin Dose Admin Acetaminophen (Tylenol) 650 mg Q6H PRN ORAL Mild Pain (Pain Scale 1-3) 04/30/20 05:00 05/30/20 04:59 Acetaminophen (Tylenol) 650 mg Q6H PRN ORAL Temp >100.5 04/30/20 05:00 05/30/20 04:59 Atorvastatin Calcium (Lipitor) 40 mg BEDTIME ORAL 04/30/20 21:00 07/29/20 20:59 05/01/20 20:49 Dextrose (Dextrose 50%) 25 ml Q30M PRN IV Hypoglycemia 04/30/20 05:00 07/29/20 04:59 Dextrose (Dextrose 50%) 50 ml Q30M PRN IV Hypoglycemia 04/30/20 05:00 07/29/20 04:59 Donepezil HCl (Aricept) 10 mg BID ORAL 04/30/20 09:00 05/30/20 08:59 05/02/20 09:10 Hydralazine HCl (Apresoline) 50 mg Q4H PRN ORAL For High Blood Pressure BP>160 04/30/20 05:00 07/29/20 04:59 04/30/20 20:40 Insulin Aspart (NovoLOG) Q6HR SUBQ 04/30/20 06:00 07/29/20 05:59 05/02/20 06:22 Linaclotide (Linzess) 290 mcg DAILYPRN PRN ORAL Constipation 04/30/20 05:00 07/29/20 04:59 05/01/20 17:09 Losartan Potassium (Cozaar) 100 mg DAILY ORAL 04/30/20 09:00 05/30/20 08:59 05/02/20 09:11 Memantine (Namenda) 10 mg DAILY ORAL 04/30/20 09:00 05/30/20 08:59 05/02/20 09:10 Pioglitazone HCl (Actos) 15 mg DAILY ORAL 04/30/20 09:00 05/30/20 08:59 05/02/20 09:10 Sertraline HCl (Zoloft) 25 mg DAILY ORAL 04/30/20 09:00 05/30/20 08:59 05/02/20 09:10 Tamsulosin HCl (Flomax) 0.4 mg DAILY ORAL 04/30/20 09:00 05/30/20 08:59 05/02/20 09:10 Allergies: Coded Allergies: No Known Allergies (Unverified , 04/29/20) Subjective hemoglobin stable FOBT sent Gi consulted Objective Last Vital Signs Date Time Temp Pulse Resp B/P (MAP) Pulse Ox O2 Delivery O2 Flow Rate FiO2 05/02/20 09:11 127/72 05/02/20 08:00 98.0 86 20 90 05/01/20 21:00 Room Air Laboratory Tests Test 05/01/20 16:25 05/02/20 01:00 05/02/20 05:15 05/02/20 06:21 Stool Occult Blood Pending POC Whole Blood Glucose 181 MG/DL (74-106) H 172 MG/DL (74-106) H White Blood Count 4.2 K/UL (4.8-10.8) L Red Blood Count 3.86 M/UL (4.70-6.10) L Hemoglobin 11.8 G/DL (14.2-18.0) L Hematocrit 35.4 % (42.0-52.0) L Mean Corpuscular Volume 92 FL (80-99) Mean Corpuscular Hemoglobin 30.6 PG (27.0-31.0) Mean Corpuscular Hemoglobin Concent 33.4 G/DL (32.0-36.0) Red Cell Distribution Width 16.3 % (11.6-14.8) H Platelet Count 299 K/UL (150-450) Mean Platelet Volume 6.4 FL (6.5-10.1) L Neutrophils (%) (Auto) 64.3 % (45.0-75.0) Lymphocytes (%) (Auto) 26.7 % (20.0-45.0) Monocytes (%) (Auto) 7.4 % (1.0-10.0) Eosinophils (%) (Auto) 1.1 % (0.0-3.0) Basophils (%) (Auto) 0.6 % (0.0-2.0) Sodium Level 141 MMOL/L (136-145) Potassium Level 3.9 MMOL/L (3.5-5.1) Chloride Level 107 MMOL/L (98-107) Carbon Dioxide Level 26 MMOL/L (21-32) Anion Gap 8 mmol/L (5-15) Blood Urea Nitrogen 15 mg/dL (7-18) Creatinine 0.9 MG/DL (0.55-1.30) Estimat Glomerular Filtration Rate > 60 mL/min (>60) Glucose Level 185 MG/DL (74-106) H Calcium Level 9.0 MG/DL (8.5-10.1) Phosphorus Level 3.2 MG/DL (2.5-4.9) Magnesium Level 2.0 MG/DL (1.8-2.4) Iron Level 85 ug/dL (50-175) Total Iron Binding Capacity 228 ug/dL (250-450) L Percent Iron Saturation 37 % (15-50) Unsaturated Iron Binding 143 ug/dL (112-346) Ferritin 449 NG/ML (8-388) H Vitamin B12 Level 864 PG/ML (193-986) Folate 19.6 NG/ML (8.6-58.9) Microbiology Date/Time Source Procedure Growth Status 04/30/20 03:23 Rectum - Final NO CARBAPENEM-RESISTANT ENTEROBACTERI... Complete 04/30/20 03:23 Rectum VRE Culture - Final NO VANCOMYCIN RESISTANT ENTEROCOCCUS ... Complete 04/30/20 03:23 Nasal Nares MRSA Culture - Final NO METHICILLIN RESISTANT STAPH AUREUS... Complete Intake and Output 05/01/20 05/02/20 19:00 07:00 Intake Total 360 ml 120 ml Output Total 1450 ml Balance 360 ml -1330 ml Intake Oral 360 ml 120 ml Output Urine Total 1450 ml # Voids 3 # Bowel Movements 1 1 Objective General appearance: no distress Head: Normocephalic, without obvious abnormality, atraumatic Eyes: conjunctivae/corneas clear. PERRL, EOM's intact. Fundi benign Throat: Lips, mucosa, and tongue normal. Teeth and gums normal Neck: supple, symmetrical, trachea midline, no adenopathy, thyroid: not enlarged, symmetric, no tenderness/mass/nodules, no carotid bruit and no JVD Lungs: clear to auscultation bilaterally Heart: regular rate and rhythm, S1, S2 normal, no murmur, click, rub or gallop Abdomen: soft, non-tender. Bowel sounds normal. No masses, no organomegaly Extremities: extremities normal, atraumatic, no cyanosis or edema Pulses: 2+ and symmetric Skin: Skin color, texture, turgor normal. No rashes or lesions Neurologic: Grossly normal Assessment/Plan Assessment/Plan #Acute on chronic anemia- r/o GI bleed #HTN- accelerated #HLD #DM #dementia #BPH - admit to inpatient - prbc transfusion - monitor hemoglobin - increase losartan to 100mg daily - continue hydralazine prn - flomax - monitor hemoglobin - GI Hermes Sommers M.D. May 02, 2020 10:19
[2020-05-02 12:00] VITALS: BP 142/76
--- NOTE | 2020-05-02 12:19 | General Progress Note ---
Subjective ROS Limited/Unobtainable: No Allergies: Coded Allergies: No Known Allergies (Unverified , 04/29/20) Objective Last 24 Hour Vital Signs Date Time Temp Pulse Resp B/P (MAP) Pulse Ox O2 Delivery O2 Flow Rate FiO2 05/02/20 09:11 127/72 05/02/20 08:00 98.0 86 20 127/72 (90) 90 05/02/20 04:00 97.4 92 20 141/67 (91) 94 05/02/20 00:00 97.8 95 20 131/76 (94) 94 05/01/20 21:00 Room Air 05/01/20 20:00 97.2 89 20 142/75 (97) 96 05/01/20 16:06 98.4 96 18 126/82 (97) 94 Intake and Output 05/01/20 05/02/20 19:00 07:00 Intake Total 360 ml 120 ml Output Total 1450 ml Balance 360 ml -1330 ml Intake Oral 360 ml 120 ml Output Urine Total 1450 ml # Voids 3 # Bowel Movements 1 1 Laboratory Tests 05/01/20 16:25: Stool Occult Blood Negative 05/02/20 01:00: POC Whole Blood Glucose 181H 05/02/20 05:15: White Blood Count 4.2L, Red Blood Count 3.86L, Hemoglobin 11.8L, Hematocrit 35.4L, Mean Corpuscular Volume 92, Mean Corpuscular Hemoglobin 30.6, Mean Corpuscular Hemoglobin Concent 33.4, Red Cell Distribution Width 16.3H, Platelet Count 299, Mean Platelet Volume 6.4L, Neutrophils (%) (Auto) 64.3, Lymphocytes (%) (Auto) 26.7, Monocytes (%) (Auto) 7.4, Eosinophils (%) (Auto) 1.1, Basophils (%) (Auto) 0.6, Sodium Level 141, Potassium Level 3.9, Chloride Level 107, Carbon Dioxide Level 26, Anion Gap 8, Blood Urea Nitrogen 15, Creatinine 0.9, Estimat Glomerular Filtration Rate > 60, Glucose Level 185H, Calcium Level 9.0, Phosphorus Level 3.2, Magnesium Level 2.0, Iron Level 85, Total Iron Binding Capacity 228L, Percent Iron Saturation 37, Unsaturated Iron Binding 143, Ferritin 449H, Vitamin B12 Level 864, Folate 19.6 05/02/20 06:21: POC Whole Blood Glucose 172H 05/02/20 12:14: POC Whole Blood Glucose 164H Height (Feet): 5 Height (Inches): 5.00 Weight (Pounds): 120 General Appearance: no apparent distress EENT: normal ENT inspection Neck: supple Cardiovascular: normal rate Respiratory/Chest: decreased breath sounds Abdomen: normal bowel sounds, non tender, soft Extremities: non-tender Assessment/Plan Problem List: (1) GI bleed ICD Codes: K92.2 - Gastrointestinal hemorrhage, unspecified SNOMED: 63819901 (2) Anemia ICD Codes: D64.9 - Anemia, unspecified SNOMED: 506146429 Qualifiers: Qualified Codes: D64.9 - Anemia, unspecified (3) Hyperglycemia due to type 2 diabetes mellitus ICD Codes: E11.65 - Type 2 diabetes mellitus with hyperglycemia SNOMED: 235613963887994, 54715515 Qualifiers: Qualified Codes: E11.65 - Type 2 diabetes mellitus with hyperglycemia (4) Hypertension ICD Codes: I10 - Essential (primary) hypertension SNOMED: 12150982, 66460618 Qualifiers: Qualified Codes: I10 - Essential (primary) hypertension Assessment/Plan: plan EGD and colonoscopy for tomorrow repeat labs cea Jann Duong MD May 02, 2020 12:19
--- NOTE | 2020-05-02 13:54 | Surgery Progress Note ---
Surgery Progress Note Subjective Additional Comments Plan for EGD and colonoscopy tomorrow. No nausea fever chills. Abdominal pain improved. Objective Last 24 Hour Vital Signs Date Time Temp Pulse Resp B/P (MAP) Pulse Ox O2 Delivery O2 Flow Rate FiO2 05/02/20 12:00 100.3 92 20 142/76 (98) 98 05/02/20 09:11 127/72 05/02/20 08:00 98.0 86 20 127/72 (90) 90 05/02/20 04:00 97.4 92 20 141/67 (91) 94 05/02/20 00:00 97.8 95 20 131/76 (94) 94 05/01/20 21:00 Room Air 05/01/20 20:00 97.2 89 20 142/75 (97) 96 05/01/20 16:06 98.4 96 18 126/82 (97) 94 I&O Intake and Output 05/01/20 05/02/20 19:00 07:00 Intake Total 360 ml 120 ml Output Total 1450 ml Balance 360 ml -1330 ml Intake Oral 360 ml 120 ml Output Urine Total 1450 ml # Voids 3 # Bowel Movements 1 1 Cardiovascular: RSR Respiratory: clear Abdomen: soft, flat, non-tender, present bowel sounds Extremities: no edema, no tenderness, no cyanosis Laboratory Tests Test 05/01/20 16:25 05/02/20 01:00 05/02/20 05:15 05/02/20 06:21 Stool Occult Blood Negative (NEGATIVE) POC Whole Blood Glucose 181 MG/DL (74-106) H 172 MG/DL (74-106) H White Blood Count 4.2 K/UL (4.8-10.8) L Red Blood Count 3.86 M/UL (4.70-6.10) L Hemoglobin 11.8 G/DL (14.2-18.0) L Hematocrit 35.4 % (42.0-52.0) L Mean Corpuscular Volume 92 FL (80-99) Mean Corpuscular Hemoglobin 30.6 PG (27.0-31.0) Mean Corpuscular Hemoglobin Concent 33.4 G/DL (32.0-36.0) Red Cell Distribution Width 16.3 % (11.6-14.8) H Platelet Count 299 K/UL (150-450) Mean Platelet Volume 6.4 FL (6.5-10.1) L Neutrophils (%) (Auto) 64.3 % (45.0-75.0) Lymphocytes (%) (Auto) 26.7 % (20.0-45.0) Monocytes (%) (Auto) 7.4 % (1.0-10.0) Eosinophils (%) (Auto) 1.1 % (0.0-3.0) Basophils (%) (Auto) 0.6 % (0.0-2.0) Sodium Level 141 MMOL/L (136-145) Potassium Level 3.9 MMOL/L (3.5-5.1) Chloride Level 107 MMOL/L (98-107) Carbon Dioxide Level 26 MMOL/L (21-32) Anion Gap 8 mmol/L (5-15) Blood Urea Nitrogen 15 mg/dL (7-18) Creatinine 0.9 MG/DL (0.55-1.30) Estimat Glomerular Filtration Rate > 60 mL/min (>60) Glucose Level 185 MG/DL (74-106) H Calcium Level 9.0 MG/DL (8.5-10.1) Phosphorus Level 3.2 MG/DL (2.5-4.9) Magnesium Level 2.0 MG/DL (1.8-2.4) Iron Level 85 ug/dL (50-175) Total Iron Binding Capacity 228 ug/dL (250-450) L Percent Iron Saturation 37 % (15-50) Unsaturated Iron Binding 143 ug/dL (112-346) Ferritin 449 NG/ML (8-388) H Vitamin B12 Level 864 PG/ML (193-986) Folate 19.6 NG/ML (8.6-58.9) Test 05/02/20 12:14 POC Whole Blood Glucose 164 MG/DL (74-106) H Plan Problems: (1) Hypertension (2) Hyperglycemia due to type 2 diabetes mellitus (3) Anemia (4) GI bleed Assessment & Plan: 79M with significant anemia. as per report history of guiac positive afebrile, HD stable rectal exam without gross blood. transfused prbc and improved comfortable no complaints tolerating diet GI eval for colonoscopy/egd? okay for diet will follow with exam and recs trend labs thank you egd / colonoscopy planned 05/03 Arnoldo Oropeza May 02, 2020 13:54
--- NOTE | 2020-05-02 14:30 | NUR ---
NURSE NOTES: Obtained consent for EGD w/ possible bx and colonoscopy by Andre Coleen, Son.
--- NOTE | 2020-05-02 15:49 | NUR ---
NURSE NOTES:WOUND CARE NOTES:Pt presented on admission with resolving Pressure Injuries to R and L hips. Resolving Pressure Injury R Hip(L)1cm x (W)0.8cm. Ravenel epithelial at base of wound with surrounding loose dry eschar. No evidence of surrounding erythema,induration,or fluctuance. Resolving Pressure Injury L Hip (L)2.3cm x (W)1cm. Ravenel epithelial at base of wound with surrounding loose dry eschar. No evidence of erythema,induration,or fluctuance periwound. Non-Blanchable erythema without induration Sacrum/L Gluteal cheek . Non-Blanchable erythema with fluctuance medial L Heel. R Heel is easily blanchable but boggy. Tx.Plan: Apply Cavilon Skin Barrier to R and L Hips. Cover each Hip with Optifoam drsgs. Change every 7 days and prn. Apply Moisture Barrier Paste to Sacrum/L buttocks. Cover with Optifoam drsg. Change every 3 days and prn. Apply Cavilon Skin Barrier to R and L Heels. Cover each Heel with Optifoam drsg. Change every 7 days and prn. Reposition at least every 2 hours or as tolerated. Off-load heels with Pillow.
--- NOTE | 2020-05-02 15:56 | NUR ---
INSURANCE CLINICALS/REVIEW FAXED TO [facility] ph# [phone] fax#[phone] [facility] ph#[phone] fax# [phone]
[2020-05-02 16:00] VITALS: BP 106/59
[2020-05-02] MEDS ORDERED: Polyethylene Glycol 238gm bottle ORAL ONE (16:00)
[2020-05-02] MEDS: D5 1/2NS w/KCl 20mEq 1,000 ML IV SCH (16:09)
--- NOTE | 2020-05-02 19:23 | NUR ---
NURSE HAND-OFF: Important Events on Shift:Obtained consent for EGD, Colonoscopy tomorrow. Had fever 100.3 and tylenol 650 mg was taken Patient Status: stable Diet: Clear liquid Pending Orders: EGD, Colonoscopy Pending Results/Labs:n/a Pending MD notification:n/a Latest Vital Signs: Temperature 98.4 , Pulse 84 , B/P 106 /59 , Respiratory Rate 18 , O2 SAT 93 , Room Air, O2 Flow Rate . Vital Sign Comment: stable Latest Pierce Fall Score: 50 Fall Risk: High Risk Safety Measures: Call light Within Reach, Bed Alarm Zone 2, Side Rails Side Rails x3, Bed position Low and Locked. Fall Precautions: Yellow Socks Door Sign Patient Fall Education Report given to ZAHRAA Toribio.
--- NOTE | 2020-05-02 19:32 | NUR ---
NURSE NOTES: Patient asleep in bed, on room air, no SOB noted, with Larry catheter, IV access on left forearm g.20. Call light in reach. Bed in lowest, lock engaged and alarm on. Will continue to monitor.
[2020-05-02 20:00] VITALS: BP 135/76
[2020-05-02] MEDS: Atorvastatin 20mg tab ORAL SCH (20:29)
[2020-05-03] VITALS (15 sets, daily range): BP systolic 90–131; BP diastolic 39–75
[2020-05-03] MEDS: D5 1/2NS w/KCl 20mEq 1,000 ML IV SCH (05:29)
[2020-05-03] MEDS: NovoLOG Insulin Flexpen SUBQ SCH ×3 (05:30→17:44)
--- NOTE | 2020-05-03 06:44 | Anethesia Preoperative Eval ---
Anesthesia Pre-op PMH/ROS General Date of Evaluation: May 03, 2020 Time of Evaluation: 06:41 Anesthesiologist: rodrigo ASA Score: ASA 4 Mallampati Score Class I : Soft palate, uvula, fauces, pillars visible Class II: Soft palate, uvula, fauces visible Class III: Soft palate, base of uvula visible Class IV: Only hard plate visible Mallampati Classification: Class II Surgeon: jesse Diagnosis: gi bleed Surgical Procedure: egd/colonoscopy Anesthesia History: none Social History: smoking - nonsmoker Family History: no anesthesia problems Allergies: Coded Allergies: No Known Allergies (Unverified , 04/29/20) Medications: see eMAR Patient NPO?: Yes Past Medical History Cardiovascular: Reports: HTN, arrhythmia Neurologic/Psychiatric: Reports: dementia Endocrine: Reports: DM Hematology/Immune: Reports: anemia Anesthesia Pre-op Phys. Exam Physician Exam Last Vital Signs Date Time Temp Pulse Resp B/P (MAP) Pulse Ox O2 Delivery O2 Flow Rate FiO2 05/03/20 04:00 98.2 77 18 124/63 (83) 93 05/02/20 21:00 Room Air Constitutional: NAD Neurologic: other Cardiovascular: other Respiratory: CTA Gastrointestinal: S/NT/ND Airway Exam Mallampati Score: Class II MO: limited Neck: flexible TMD: 2fb ROM: limited Teeth: missing Anesthesia Pre-op A/P Labs Chemistry Test 05/02/20 12:14 05/02/20 17:30 05/02/20 23:18 05/03/20 05:28 POC Whole Blood Glucose 164 MG/DL (74-106) H 301 MG/DL (74-106) H Pending Pending Risk Assessment & Plan Assessment: [email or web address] Plan: mac Status Change Before Surgery: No Pre-Antibiotics Drug: Renu Padron MD May 03, 2020 06:44
[2020-05-03] MEDS ORDERED: DiphenhydrAMINE 50mg/ml Inj IVP PRN (06:45)
[2020-05-03] MEDS ORDERED: Midazolam 2mg/2ml Inj IVP PRN (06:45)
[2020-05-03] MEDS ORDERED: Atropine Inj 1mg/10ml Syr IVP PRN (06:45)
[2020-05-03] MEDS ORDERED: fentaNYL 100 mcg/2 mL IV PRN (06:45)
[2020-05-03] MEDS ORDERED: NS 500ML IVPB ONE (06:55)
[2020-05-03] MEDS ORDERED: Lidocaine 1% MPF 10mg/ml 5ml ONE (07:00)
--- NOTE | 2020-05-03 07:11 | Pre-Procedure Note/Attestation ---
Pre-Procedure Note/Attestation Complete Prior to Procedure Planned Procedure: not applicable Procedure Narrative: esophagogastroduodenoscopy and colonoscopy Indications for Procedure Pre-Operative Diagnosis: anemia Attestation I attest that I discussed the nature of the procedure; its benefits; risks and complications; and alternatives (and the risks and benefits of such alternatives), prior to the procedure, with the patient (or the patient's legal sales representative leather goods). I attest that, if there was a reasonable possibility of needing a blood transfusion, the patient (or the patient's legal sales representative leather goods) was given the [facility] standardized written summary, pursuant to the Dino Alexei Blood Safety Act ([place] Health and Safety Code # 1645, as amended). I attest that I re-evaluated the patient just prior to the surgery and that there has been no change in the patient's H&P, except as documented below: Jann Duong MD May 03, 2020 07:11
[2020-05-03 07:17] LABS: BASOPHILS % (AUTO) 0.5 % (0.0-2.0); EOSINOPHILS % (AUTO) 0.6 % (0.0-3.0); HEMATOCRIT 33.7 % (42.0-52.0); HEMOGLOBIN 11.2 G/DL (14.2-18.0); LYMPHOCYTES % (AUTO) 18.2 % (20.0-45.0); MEAN CORPUSCULAR VOLUME 94 FL (80-99); MONOCYTES % (AUTO) 3.5 % (1.0-10.0); NEUTROPHILS % (AUTO) 77.2 % (45.0-75.0); PLATELET COUNT 285 K/UL (150-450); RED BLOOD COUNT 3.61 M/UL (4.70-6.10); RED CELL DISTRIBUTION WIDTH 16.7 % (11.6-14.8); WHITE BLOOD COUNT 6.2 K/UL (4.8-10.8)
--- NOTE | 2020-05-03 07:38 | Endoscopy Procedure Note ---
Endoscopy Procedure Note General Indication for Procedure: anemia Procedures Performed: EGD, colonoscopy Operative Findings/Diagnosis: gastritis, colon polyp Specimen: yes Pt Tolerated Procedure Well: Yes Estimated Blood Loss: none Anesthesia Anesthesiologist: jhoana Anesthesia: MAC Inserted Devices Implant(s) used?: No Quality Quality of Bowel Preparation: Good Did scope reach the cecum?: Yes Was there any complications?: No GI Core Measures 50 yrs or older w/o bx or poly: Not Applicable 10yrs. F/U recommended: Not Applicable Jann Duong MD May 03, 2020 07:37
--- NOTE | 2020-05-03 07:49 | NUR ---
NURSE NOTES: Patient off unit for procedure.
[2020-05-03 07:58] LABS: ANION GAP 10 mmol/L (5-15); BLOOD UREA NITROGEN 14 mg/dL (7-18); CALCIUM 8.8 MG/DL (8.5-10.1); CARBON DIOXIDE 25 MMOL/L (21-32); CHLORIDE 108 MMOL/L (98-107); POTASSIUM 3.3 MMOL/L (3.5-5.1); SODIUM 143 MMOL/L (136-145)
--- NOTE | 2020-05-03 08:04 | NUR ---
NURSE HAND-OFF: Important Events on Shift: procedure, BM Patient Status: Diet: NPO Pending Orders: Pending Results/Labs: Pending MD notification: Latest Vital Signs: Temperature 98.2 , Pulse 77 , B/P 124 /63 , Respiratory Rate 18 , O2 SAT 93 , Room Air, O2 Flow Rate . Vital Sign Comment: Latest Pierce Fall Score: 50 Fall Risk: High Risk Safety Measures: Call light Within Reach, Bed Alarm Zone 2, Side Rails Side Rails x3, Bed position Low and Locked. Fall Precautions: Yellow Socks Door Sign Patient Fall Education Report given to ZAHRAA [place].
--- NOTE | 2020-05-03 08:29 | NUR ---
NURSE NOTES: Spoke to regarding morning potassium level and new order received. Order read back and carried out.
--- NOTE | 2020-05-03 08:40 | NUR ---
NURSE NOTES: Patient came back from procedure in stable condition. No complain of pain or distress at this time. IV dressing intact and dry. Larry catheter patent and draining well. Bed lowest position and side rails up. Call light within reach. Will continue to monitor.
--- NOTE | 2020-05-03 09:00 | Internal Med Progress Note ---
Subjective Physician Name Hermes Duff Attending Physician Hermes Duff M.D. Current Medications Medications (Trade) Dose Ordered Sig/Maryam Route PRN Reason Start Time Stop Time Status Last Admin Dose Admin Acetaminophen (Tylenol) 650 mg Q4H PRN ORAL Mild Pain (Pain Scale 1-3) 05/03/20 06:45 05/03/20 14:45 Acetaminophen (Tylenol) 650 mg Q6H PRN ORAL Temp >100.5 04/30/20 05:00 05/30/20 04:59 05/02/20 12:59 Acetaminophen (Tylenol) 650 mg Q6H PRN ORAL Mild Pain (Pain Scale 1-3) 04/30/20 05:00 05/30/20 04:59 Al Hydroxide/Mg Hydroxide (Mylanta) 15 ml Q1H PRN ORAL gi upset 05/03/20 06:45 05/03/20 14:45 Atorvastatin Calcium (Lipitor) 40 mg BEDTIME ORAL 04/30/20 21:00 07/29/20 20:59 05/02/20 20:29 Atropine Sulfate (Atropine) 0.5 mg Q5M PRN IVP HR less than 45 BPM 05/03/20 06:45 05/03/20 14:45 Dextrose (Dextrose 50%) 25 ml Q30M PRN IV Hypoglycemia 04/30/20 05:00 07/29/20 04:59 Dextrose (Dextrose 50%) 50 ml Q30M PRN IV Hypoglycemia 04/30/20 05:00 07/29/20 04:59 Diphenhydramine HCl (Benadryl) 25 mg Q15M PRN IVP Itching 05/03/20 06:45 05/03/20 14:45 Donepezil HCl (Aricept) 10 mg BID ORAL 04/30/20 09:00 05/30/20 08:59 05/02/20 17:30 Fentanyl Citrate (Sublimaze 100 mcg/2 mL) 25 mcg Q10M PRN IV Moderate Pain (Pain Scale 4-6) 05/03/20 06:45 05/03/20 14:45 Hydralazine HCl (Apresoline) 5 mg Q30M PRN IV SBP>160 /DBP>90 05/03/20 06:45 05/03/20 14:45 Hydralazine HCl (Apresoline) 50 mg Q4H PRN ORAL For High Blood Pressure BP>160 04/30/20 05:00 07/29/20 04:59 04/30/20 20:40 Insulin Aspart (NovoLOG) Q6HR SUBQ 04/30/20 06:00 07/29/20 05:59 05/03/20 05:30 Losartan Potassium (Cozaar) 100 mg DAILY ORAL 04/30/20 09:00 05/30/20 08:59 05/02/20 09:11 Memantine (Namenda) 10 mg DAILY ORAL 04/30/20 09:00 05/30/20 08:59 05/02/20 09:10 Midazolam HCl (Versed 2mg/2ml vial) 1 mg Q15M PRN IVP For Anxiety 05/03/20 06:45 05/03/20 14:45 Pioglitazone HCl (Actos) 15 mg DAILY ORAL 04/30/20 09:00 05/30/20 08:59 05/02/20 09:10 Potassium Chloride (K-Dur) 40 meq ONCE ORAL 05/03/20 09:00 05/03/20 11:00 Sertraline HCl (Zoloft) 25 mg DAILY ORAL 05/03/20 09:00 05/30/20 08:59 Tamsulosin HCl (Flomax) 0.4 mg DAILY ORAL 04/30/20 09:00 05/30/20 08:59 05/02/20 09:10 Allergies: Coded Allergies: No Known Allergies (Unverified , 04/29/20) Subjective hemoglobin stable FOBT sent Gi consulted EGD colo today Objective Last Vital Signs Date Time Temp Pulse Resp B/P (MAP) Pulse Ox O2 Delivery O2 Flow Rate FiO2 05/03/20 04:00 98.2 77 18 124/63 (83) 93 05/02/20 21:00 Room Air Laboratory Tests Test 05/02/20 12:14 05/02/20 17:30 05/02/20 23:18 05/03/20 05:28 POC Whole Blood Glucose 164 MG/DL (74-106) H 301 MG/DL (74-106) H Pending Pending Test 05/03/20 06:21 White Blood Count 6.2 K/UL (4.8-10.8) Red Blood Count 3.61 M/UL (4.70-6.10) L Hemoglobin 11.2 G/DL (14.2-18.0) L Hematocrit 33.7 % (42.0-52.0) L Mean Corpuscular Volume 94 FL (80-99) Mean Corpuscular Hemoglobin 31.0 PG (27.0-31.0) Mean Corpuscular Hemoglobin Concent 33.1 G/DL (32.0-36.0) Red Cell Distribution Width 16.7 % (11.6-14.8) H Platelet Count 285 K/UL (150-450) Mean Platelet Volume 6.8 FL (6.5-10.1) Neutrophils (%) (Auto) 77.2 % (45.0-75.0) H Lymphocytes (%) (Auto) 18.2 % (20.0-45.0) L Monocytes (%) (Auto) 3.5 % (1.0-10.0) Eosinophils (%) (Auto) 0.6 % (0.0-3.0) Basophils (%) (Auto) 0.5 % (0.0-2.0) Sodium Level 143 MMOL/L (136-145) Potassium Level 3.3 MMOL/L (3.5-5.1) L Chloride Level 108 MMOL/L (98-107) H Carbon Dioxide Level 25 MMOL/L (21-32) Anion Gap 10 mmol/L (5-15) Blood Urea Nitrogen 14 mg/dL (7-18) Creatinine 1.0 MG/DL (0.55-1.30) Estimat Glomerular Filtration Rate > 60 mL/min (>60) Glucose Level 179 MG/DL (74-106) H Calcium Level 8.8 MG/DL (8.5-10.1) Magnesium Level 1.9 MG/DL (1.8-2.4) Carcinoembryonic Antigen Pending Intake and Output 05/02/20 05/03/20 19:00 07:00 Intake Total 950 ml Output Total 350 ml 350 ml Balance 600 ml -350 ml Intake Oral 800 ml IV Total 150 ml Output Urine Total 350 ml 350 ml # Bowel Movements 3 5 Objective General appearance: no distress Head: Normocephalic, without obvious abnormality, atraumatic Eyes: conjunctivae/corneas clear. PERRL, EOM's intact. Fundi benign Throat: Lips, mucosa, and tongue normal. Teeth and gums normal Neck: supple, symmetrical, trachea midline, no adenopathy, thyroid: not enlarged, symmetric, no tenderness/mass/nodules, no carotid bruit and no JVD Lungs: clear to auscultation bilaterally Heart: regular rate and rhythm, S1, S2 normal, no murmur, click, rub or gallop Abdomen: soft, non-tender. Bowel sounds normal. No masses, no organomegaly Extremities: extremities normal, atraumatic, no cyanosis or edema Pulses: 2+ and symmetric Skin: Skin color, texture, turgor normal. No rashes or lesions Neurologic: Grossly normal Assessment/Plan Assessment/Plan #Acute on chronic anemia- r/o GI bleed #HTN- accelerated #HLD #DM #dementia #BPH - EGD/colo today - prbc transfusion prn - monitor hemoglobin - increase losartan to 100mg daily - continue hydralazine prn - flomax - monitor hemoglobin - GI Hermse Sommers M.D. May 03, 2020 09:00
[2020-05-03] MEDS: Sertraline 50mg tab ORAL SCH (09:31)
[2020-05-03] MEDS: Losartan 50mg tab ORAL SCH (09:31)
[2020-05-03] MEDS: Tamsulosin 0.4mg cap ORAL SCH (09:31)
[2020-05-03] MEDS: Memantine 10mg tab ORAL SCH (09:32)
[2020-05-03] MEDS: Donepezil 10mg tab ORAL SCH ×2 (09:33→17:43)
--- NOTE | 2020-05-03 09:54 | Immediate Post-Op Evaluation ---
Immediate Post-Op Evalulation Immediate Post-Op Evalulation Procedure: egd/colonoscopy Date of Evaluation: May 03, 2020 Time of Evaluation: 08:07 IV Fluids: 500ml 0.9ns Blood Products: none Estimated Blood Loss: negligible Blood Pressure Systolic: 104 Blood Pressure Diastolic: 48 Pulse Rate: 62 Respiratory Rate: 18 O2 Sat by Pulse Oximetry: 100 Temperature (Fahrenheit): 97.7 Pain Score (1-10): 0 Nausea: No Vomiting: No Complications none Patient Status: awake, reacts, patent Hydration Status: adequate Drug: Renu Padron MD May 03, 2020 09:54
--- NOTE | 2020-05-03 09:55 | 48 Hour Post Anesthesia Eval ---
Post Anesthesia Evaluation Procedure: egd/colonoscopy Date of Evaluation: May 03, 2020 Time of Evaluation: 08:09 Blood Pressure Systolic: 128 0: 51 Pulse Rate: 60 Respiratory Rate: 18 Temperature (Fahrenheit): 97.7 O2 Sat by Pulse Oximetry: 100 Airway: patent Nausea: No Vomiting: No Pain Intensity: 0 Hydration Status: adequate Cardiopulmonary Status: stable Mental Status/LOC: patient returned to baseline Post-Anesthesia Complications: none Follow-up care needed: N/A Renu Chatterjee MD May 03, 2020 09:55
--- NOTE | 2020-05-03 11:47 | Procedure Note ---
DATE OF PROCEDURE: 05/03/2020 SURGEON: Jann Duong MD PROCEDURE: Upper endoscopy with biopsy and colonoscopy with biopsy. ANESTHESIA: Per . INSTRUMENT: Olympus adult flexible upper endoscope and colonoscope. INDICATION: Anemia. REASON FOR PROCEDURE: The procedure, risks, benefits, and possible consequences, including hemorrhage, aspiration, perforation and infection, and alternative treatments, were explained to the patient/legal guardian by Dr. Jann Duong and the patient/legal guardian understood and accepted these risks. DESCRIPTION OF PROCEDURE: After informed consent was obtained and patient was adequately sedated, Olympus upper endoscope was advanced from mouth into the second portion of duodenum and retroflexion was performed in the stomach. The patient had evidence of diffuse gastritis, atrophic looking. Random biopsies from antrum were obtained to rule out H. pylori infection. Otherwise, the rest of the upper endoscopic examination grossly within normal limits. At this time, the upper endoscope was retrieved and the patient was turned over for colonoscopy. First, rectal exam was performed, which was positive for internal hemorrhoids. Then, the scope was advanced from rectum into the cecum documented by appendiceal orifice, ileocecal valve, and right upper quadrant palpation. Quality of prep was overall good. At the area in the rectosigmoid area, there was one area which was tattooed. There was a small polyp in that area which was removed with cold biopsy forceps technique. No further polyp was seen in this colonoscopy examination. The patient had some scattered diverticula in the left colon. There was a small ulceration in the rectum right above the dentate line without active bleeding at this time. SUMMARY OF FINDINGS: 1. Gastritis status post biopsy. 2. One colonic polyp removed, see above for details. 3. Scattered diverticulosis of left colon. 4. Small rectal ulceration. 5. Internal hemorrhoids. RECOMMENDATIONS: Follow biopsy results and treat accordingly. Resume diet. The patient to be seen by Hematology for further evaluation of cause of anemia either as inpatient or outpatient. Jann Duong M.D. DR: Rosmery JOB#: [id number] CC:
--- NOTE | 2020-05-03 12:42 | Pulmonology Progress Note ---
Subjective ROS Limited/Unobtainable: No Interval Events: None major reported per nursing Constitutional: Reports: no symptoms HEENT: Repors: no symptoms Respiratory: Reports: no symptoms Cardiovascular: Reports: no symptoms Gastrointestinal/Abdominal: Reports: no symptoms Allergies: Coded Allergies: No Known Allergies (Unverified , 04/29/20) Objective Last 24 Hour Vital Signs Date Time Temp Pulse Resp B/P (MAP) Pulse Ox O2 Delivery O2 Flow Rate FiO2 05/03/20 12:00 98.7 76 21 120/61 (80) 96 05/03/20 09:55 60 18 100 05/03/20 09:54 62 18 100 05/03/20 09:31 127/60 05/03/20 09:00 Room Air 05/03/20 08:40 98.7 75 19 127/60 (82) 97 05/03/20 08:25 59 16 110/40 99 Room Air 2 05/03/20 08:20 61 16 131/46 99 Room Air 2 05/03/20 08:15 60 16 128/51 100 Room Air 2 05/03/20 08:10 60 16 128/51 100 Room Air 2 05/03/20 08:05 60 16 93/42 100 Nasal Cannula 2 05/03/20 08:00 58 16 90/39 100 Nasal Cannula 2 05/03/20 07:55 60 16 94/42 100 Nasal Cannula 2 05/03/20 07:50 59 16 93/39 100 Nasal Cannula 2 05/03/20 07:45 97.1 58 16 92/40 100 Nasal Cannula 2 05/03/20 04:00 98.2 77 18 124/63 (83) 93 05/03/20 00:00 99.3 95 20 127/72 (90) 92 05/02/20 21:00 Room Air 05/02/20 20:00 98.1 82 18 135/76 (95) 92 05/02/20 16:00 98.4 84 18 106/59 (75) 93 05/02/20 13:45 98.0 05/02/20 13:45 98.0 Intake and Output 05/02/20 05/03/20 19:00 07:00 Intake Total 950 ml Output Total 350 ml 350 ml Balance 600 ml -350 ml Intake Oral 800 ml IV Total 150 ml Output Urine Total 350 ml 350 ml # Bowel Movements 3 5 General Appearance: no acute distress HEENT: atraumatic Respiratory: lungs clear, other - singultus; resolved Cardiovascular: normal rate Abdomen: soft, non tender Laboratory Tests 05/02/20 17:30: POC Whole Blood Glucose 301H 05/02/20 23:18: POC Whole Blood Glucose [Pending] 05/03/20 05:28: POC Whole Blood Glucose [Pending] 05/03/20 06:21: White Blood Count 6.2, Red Blood Count 3.61L, Hemoglobin 11.2L, Hematocrit 33.7L , Mean Corpuscular Volume 94, Mean Corpuscular Hemoglobin 31.0, Mean Corpuscular Hemoglobin Concent 33.1, Red Cell Distribution Width 16.7H, Platelet Count 285, Mean Platelet Volume 6.8, Neutrophils (%) (Auto) 77.2H, Lymphocytes (%) (Auto) 18.2L, Monocytes (%) (Auto) 3.5, Eosinophils (%) (Auto) 0.6, Basophils (%) (Auto) 0.5, Sodium Level 143, Potassium Level 3.3L, Chloride Level 108H, Carbon Dioxide Level 25, Anion Gap 10, Blood Urea Nitrogen 14, Creatinine 1.0, Estimat Glomerular Filtration Rate > 60, Glucose Level 179H, Calcium Level 8.8, Magnesium Level 1.9, Carcinoembryonic Antigen [Pending] 05/03/20 12:03: POC Whole Blood Glucose [Pending] Current Medications Medications (Trade) Dose Ordered Sig/Maryam Route PRN Reason Start Time Stop Time Status Last Admin Dose Admin Acetaminophen (Tylenol) 650 mg Q4H PRN ORAL Mild Pain (Pain Scale 1-3) 05/03/20 06:45 05/03/20 14:45 Acetaminophen (Tylenol) 650 mg Q6H PRN ORAL Temp >100.5 04/30/20 05:00 05/30/20 04:59 05/02/20 12:59 Acetaminophen (Tylenol) 650 mg Q6H PRN ORAL Mild Pain (Pain Scale 1-3) 04/30/20 05:00 05/30/20 04:59 Al Hydroxide/Mg Hydroxide (Mylanta) 15 ml Q1H PRN ORAL gi upset 05/03/20 06:45 05/03/20 14:45 Atorvastatin Calcium (Lipitor) 40 mg BEDTIME ORAL 04/30/20 21:00 07/29/20 20:59 05/02/20 20:29 Atropine Sulfate (Atropine) 0.5 mg Q5M PRN IVP HR less than 45 BPM 05/03/20 06:45 05/03/20 14:45 Dextrose (Dextrose 50%) 25 ml Q30M PRN IV Hypoglycemia 04/30/20 05:00 07/29/20 04:59 Dextrose (Dextrose 50%) 50 ml Q30M PRN IV Hypoglycemia 04/30/20 05:00 07/29/20 04:59 Diphenhydramine HCl (Benadryl) 25 mg Q15M PRN IVP Itching 05/03/20 06:45 05/03/20 14:45 Donepezil HCl (Aricept) 10 mg BID ORAL 04/30/20 09:00 05/30/20 08:59 05/03/20 09:33 Fentanyl Citrate (Sublimaze 100 mcg/2 mL) 25 mcg Q10M PRN IV Moderate Pain (Pain Scale 4-6) 05/03/20 06:45 05/03/20 14:45 Hydralazine HCl (Apresoline) 5 mg Q30M PRN IV SBP>160 /DBP>90 05/03/20 06:45 05/03/20 14:45 Hydralazine HCl (Apresoline) 50 mg Q4H PRN ORAL For High Blood Pressure BP>160 04/30/20 05:00 07/29/20 04:59 04/30/20 20:40 Insulin Aspart (NovoLOG) Q6HR SUBQ 04/30/20 06:00 07/29/20 05:59 05/03/20 12:05 Losartan Potassium (Cozaar) 100 mg DAILY ORAL 04/30/20 09:00 05/30/20 08:59 05/03/20 09:31 Memantine (Namenda) 10 mg DAILY ORAL 04/30/20 09:00 05/30/20 08:59 05/03/20 09:32 Midazolam HCl (Versed 2mg/2ml vial) 1 mg Q15M PRN IVP For Anxiety 05/03/20 06:45 05/03/20 14:45 Pioglitazone HCl (Actos) 15 mg DAILY ORAL 04/30/20 09:00 05/30/20 08:59 2/2/21 09:31 Sertraline HCl (Zoloft) 25 mg DAILY ORAL 05/03/20 09:00 05/30/20 08:59 05/03/20 09:31 Tamsulosin HCl (Flomax) 0.4 mg DAILY ORAL 04/30/20 09:00 05/30/20 08:59 05/03/20 09:31 Assessment/Plan Assessment/Plan 1. Anemia, history of positive guaiac -Seen by surgery -No acute GI bleed - s/p transfusion, now stable H&H - GI following - stool OB negative - s/p EGD/[place] 2. Persistent singultus; resolved -We will order chest x-ray for evaluation -> CXR atelectasis -Consider Thorazine if no resolution of singultus -> will hold for now - Monitor for hypoxia and provide supplemental oxygen as needed 3. Atelectasis on chest x-ray -Given normoxemia, monitor for now Medically stable from pulmonary standpoint The care for this patient was discussed with my supervising physician. Time spent for this case was approximately 31 minutes. Mikal Horne May 03, 2020 12:42
--- NOTE | 2020-05-03 13:57 | NUR ---
CASE MANAGEMENT:REVIEW 05/03/20 SI: ANEMIA...S/P 2 UNITS PRBC'S 98.7 76 21 120/61 96% ON RA H/H-11.2/33.7 K-3.3 IS: COZAAR PO QD FLOMAX PO QD ACTOS PO QD NAMENDA PO QD ARICEPT PO BID NOVOLOG SQ Q6HRS ZOLOFT PO QD : MED/SURG STATUS 4 EAST DCP: CV PAVILION PLAN: EGD/COLONOSCOPY TODAY
--- NOTE | 2020-05-03 14:42 | Surgery Progress Note ---
Surgery Progress Note Subjective Symptoms: improved, passing flatus, BM Objective Last 24 Hour Vital Signs Date Time Temp Pulse Resp B/P (MAP) Pulse Ox O2 Delivery O2 Flow Rate FiO2 05/03/20 12:00 98.7 76 21 120/61 (80) 96 05/03/20 09:55 60 18 100 05/03/20 09:54 62 18 100 05/03/20 09:31 127/60 05/03/20 09:00 Room Air 05/03/20 08:40 98.7 75 19 127/60 (82) 97 05/03/20 08:25 59 16 110/40 99 Room Air 2 05/03/20 08:20 61 16 131/46 99 Room Air 2 05/03/20 08:15 60 16 128/51 100 Room Air 2 05/03/20 08:10 60 16 128/51 100 Room Air 2 05/03/20 08:05 60 16 93/42 100 Nasal Cannula 2 05/03/20 08:00 58 16 90/39 100 Nasal Cannula 2 05/03/20 07:55 60 16 94/42 100 Nasal Cannula 2 05/03/20 07:50 59 16 93/39 100 Nasal Cannula 2 05/03/20 07:45 97.1 58 16 92/40 100 Nasal Cannula 2 05/03/20 04:00 98.2 77 18 124/63 (83) 93 05/03/20 00:00 99.3 95 20 127/72 (90) 92 05/02/20 21:00 Room Air 05/02/20 20:00 98.1 82 18 135/76 (95) 92 05/02/20 16:00 98.4 84 18 106/59 (75) 93 I&O Intake and Output 05/02/20 05/03/20 19:00 07:00 Intake Total 950 ml Output Total 350 ml 350 ml Balance 600 ml -350 ml Intake Oral 800 ml IV Total 150 ml Output Urine Total 350 ml 350 ml # Bowel Movements 3 5 Cardiovascular: RSR Respiratory: decreased breath sounds Abdomen: non-tender, present bowel sounds Extremities: no edema, no tenderness, no cyanosis Laboratory Tests Test 05/02/20 17:30 05/02/20 23:18 05/03/20 05:28 05/03/20 06:21 POC Whole Blood Glucose 301 MG/DL (74-106) H Pending Pending White Blood Count 6.2 K/UL (4.8-10.8) Red Blood Count 3.61 M/UL (4.70-6.10) L Hemoglobin 11.2 G/DL (14.2-18.0) L Hematocrit 33.7 % (42.0-52.0) L Mean Corpuscular Volume 94 FL (80-99) Mean Corpuscular Hemoglobin 31.0 PG (27.0-31.0) Mean Corpuscular Hemoglobin Concent 33.1 G/DL (32.0-36.0) Red Cell Distribution Width 16.7 % (11.6-14.8) H Platelet Count 285 K/UL (150-450) Mean Platelet Volume 6.8 FL (6.5-10.1) Neutrophils (%) (Auto) 77.2 % (45.0-75.0) H Lymphocytes (%) (Auto) 18.2 % (20.0-45.0) L Monocytes (%) (Auto) 3.5 % (1.0-10.0) Eosinophils (%) (Auto) 0.6 % (0.0-3.0) Basophils (%) (Auto) 0.5 % (0.0-2.0) Sodium Level 143 MMOL/L (136-145) Potassium Level 3.3 MMOL/L (3.5-5.1) L Chloride Level 108 MMOL/L (98-107) H Carbon Dioxide Level 25 MMOL/L (21-32) Anion Gap 10 mmol/L (5-15) Blood Urea Nitrogen 14 mg/dL (7-18) Creatinine 1.0 MG/DL (0.55-1.30) Estimat Glomerular Filtration Rate > 60 mL/min (>60) Glucose Level 179 MG/DL (74-106) H Calcium Level 8.8 MG/DL (8.5-10.1) Magnesium Level 1.9 MG/DL (1.8-2.4) Carcinoembryonic Antigen Pending Test 05/03/20 12:03 POC Whole Blood Glucose Pending Plan Problems: (1) Hypertension (2) Hyperglycemia due to type 2 diabetes mellitus (3) Anemia (4) GI bleed Assessment & Plan: 79M with significant anemia. as per report history of guiac positive afebrile, HD stable rectal exam without gross blood. transfused prbc and improved comfortable no complaints tolerating diet GI eval for colonoscopy/egd? okay for diet will follow with exam and recs trend labs thank you egd / colonoscopy planned 05/03 Arnoldo Oropeza May 03, 2020 14:42
--- NOTE | 2020-05-03 16:39 | NUR ---
INSURANCE CLINICALS/REVIEW FAXED TO Patient - [facility] ph# [phone] fax#[phone] [facility] ph#[phone] fax# [phone]
--- NOTE | 2020-05-03 19:30 | NUR ---
NURSE HAND-OFF: 421 Important Events on Shift:EGD and Colonoscopy today Patient Status: Stable Diet: CCHO(L) / Mech-soft Finely chopped / Pureed like soup Pending Orders: N/A Pending Results/Labs:CBC, BMP on 05/04 Pending MD notification:N/A Latest Vital Signs: Temperature 97.8 , Pulse 67 , B/P 128 /75 , Respiratory Rate 22 , O2 SAT 97 , Room Air, O2 Flow Rate 2 . Vital Sign Comment: Stable Latest Pierce Fall Score: 50 Fall Risk: High Risk Safety Measures: Call light Within Reach, Bed Alarm Zone 2, Side Rails Side Rails x3, Bed position Low and Locked. Fall Precautions: Yellow Socks Door Sign Patient Fall Education Report given to Arely VITAL. Patient in stable condition.
--- NOTE | 2020-05-03 20:21 | NUR ---
NURSES NOTE; Received report from ZAHRAA Madison. Rounds completed. Pt in bed, sleeping, awakens to name easily. No outward s/s of distress noted.Breathing is even and unlabored on RA. IV in place, L FA in place, hep locked. Larry in place, draining to gravity. All due medications will be administered. Bed at lowest level. Bed alarm engaged. Pt will continue to be monitored.
[2020-05-03] MEDS: Atorvastatin 20mg tab ORAL SCH (20:48)
[2020-05-04] VITALS: BP 147/66
[2020-05-04] MEDS: NovoLOG Insulin Flexpen SUBQ SCH ×4 (00:55→17:45)
[2020-05-04 04:00] VITALS: BP 135/70
[2020-05-04 07:24] LABS: BASOPHILS % (AUTO) 0.7 % (0.0-2.0); EOSINOPHILS % (AUTO) 0.9 % (0.0-3.0); HEMATOCRIT 33.6 % (42.0-52.0); LYMPHOCYTES % (AUTO) 18.8 % (20.0-45.0); MEAN CORPUSCULAR VOLUME 94 FL (80-99); MONOCYTES % (AUTO) 6.1 % (1.0-10.0); NEUTROPHILS % (AUTO) 73.5 % (45.0-75.0); PLATELET COUNT 285 K/UL (150-450); RED BLOOD COUNT 3.59 M/UL (4.70-6.10); WHITE BLOOD COUNT 5.8 K/UL (4.8-10.8)
--- NOTE | 2020-05-04 07:45 | NUR ---
NURSE NOTES: Pt lying in bed w/bed in lowest position and call light within reach. Pt Kinyarwanda-speaking only; VSS; and in no apparent distress. IV site infiltrated; will start new IV. Skin intact and bony prominences covered w/optifoam. Will continue to monitor.
[2020-05-04 07:52] LABS: ANION GAP 11 mmol/L (5-15); BLOOD UREA NITROGEN 12 mg/dL (7-18); CALCIUM 9.1 MG/DL (8.5-10.1); CARBON DIOXIDE 24 MMOL/L (21-32); CHLORIDE 109 MMOL/L (98-107); CREATININE 0.9 MG/DL (0.55-1.30); POTASSIUM 3.8 MMOL/L (3.5-5.1); SODIUM 144 MMOL/L (136-145)
[2020-05-04 08:00] VITALS: BP 136/81
--- NOTE | 2020-05-04 08:06 | NUR ---
NURSE HAND-OFF: Important Events on Shift:[Hiccups persisted NOC shift into the AM. Endorsed to AM RN that they have not subsided] Patient Status: [stable] Diet: [ CCHO(L) / Mech-soft Finely chopped / Pureed like soup] Pending Orders: [n/a] Pending Results/Labs:[n/a] Pending MD notification:[consistent hiccups] Latest Vital Signs: Temperature 98.8 , Pulse 80 , B/P 135 /70 , Respiratory Rate 17 , O2 SAT 96 , Room Air, O2 Flow Rate 2 . Vital Sign Comment: [wnl] Latest Pierce Fall Score: 50 Fall Risk: High Risk Safety Measures: Call light Within Reach, Bed Alarm Zone 2, Side Rails Side Rails x3, Bed position Low and Locked. Fall Precautions: Yellow Socks Door Sign Patient Fall Education Report given to [ZAHRAA Gonzalez].
--- NOTE | 2020-05-04 08:53 | NUR ---
CASE MANAGEMENT:REVIEW 05/04/20 SI: ANEMIA...S/P 2 UNITS PRBC'S 99.4 77 17 147/66 93% ON RA H/H-11.0/33.6 IS: COZAAR PO QD FLOMAX PO QD ACTOS PO QD NAMENDA PO QD ARICEPT PO BID NOVOLOG SQ Q6HRS ZOLOFT PO QD : MED/SURG STATUS 4 EAST DCP: CV PAVILION PLAN: S/P EGD/COLONOSCOPY TODAY
[2020-05-04] MEDS: Memantine 10mg tab ORAL SCH (09:06)
[2020-05-04] MEDS: Tamsulosin 0.4mg cap ORAL SCH (09:07)
[2020-05-04] MEDS: Sertraline 50mg tab ORAL SCH (09:07)
[2020-05-04] MEDS: Losartan 50mg tab ORAL SCH (09:07)
[2020-05-04] MEDS: Donepezil 10mg tab ORAL SCH ×2 (09:07→17:43)
--- NOTE | 2020-05-04 09:26 | Internal Med Progress Note ---
Subjective Physician Name Hermes Duff Attending Physician Hermes Duff M.D. Current Medications Medications (Trade) Dose Ordered Sig/Maryam Route PRN Reason Start Time Stop Time Status Last Admin Dose Admin Acetaminophen (Tylenol) 650 mg Q6H PRN ORAL Temp >100.5 04/30/20 05:00 05/30/20 04:59 05/02/20 12:59 Acetaminophen (Tylenol) 650 mg Q6H PRN ORAL Mild Pain (Pain Scale 1-3) 04/30/20 05:00 05/30/20 04:59 Atorvastatin Calcium (Lipitor) 40 mg BEDTIME ORAL 04/30/20 21:00 07/29/20 20:59 05/03/20 20:48 Dextrose (Dextrose 50%) 25 ml Q30M PRN IV Hypoglycemia 04/30/20 05:00 07/29/20 04:59 Dextrose (Dextrose 50%) 50 ml Q30M PRN IV Hypoglycemia 04/30/20 05:00 07/29/20 04:59 Donepezil HCl (Aricept) 10 mg BID ORAL 04/30/20 09:00 05/30/20 08:59 05/04/20 09:07 Hydralazine HCl (Apresoline) 50 mg Q4H PRN ORAL For High Blood Pressure BP>160 04/30/20 05:00 07/29/20 04:59 04/30/20 20:40 Insulin Aspart (NovoLOG) Q6HR SUBQ 04/30/20 06:00 07/29/20 05:59 05/04/20 00:55 Losartan Potassium (Cozaar) 100 mg DAILY ORAL 04/30/20 09:00 05/30/20 08:59 05/04/20 09:07 Memantine (Namenda) 10 mg DAILY ORAL 04/30/20 09:00 05/30/20 08:59 05/04/20 09:06 Pioglitazone HCl (Actos) 15 mg DAILY ORAL 04/30/20 09:00 05/30/20 08:59 05/04/20 09:07 Sertraline HCl (Zoloft) 25 mg DAILY ORAL 05/03/20 09:00 05/30/20 08:59 05/04/20 09:07 Tamsulosin HCl (Flomax) 0.4 mg DAILY ORAL 04/30/20 09:00 05/30/20 08:59 05/04/20 09:07 Allergies: Coded Allergies: No Known Allergies (Unverified , 04/29/20) Subjective hemoglobin stable s/p EGD and colonoscopy 1. Gastritis status post biopsy. 2. One colonic polyp removed, see above for details. 3. Scattered diverticulosis of left colon. 4. Small rectal ulceration. 5. Internal hemorrhoids. heme consult Objective Last Vital Signs Date Time Temp Pulse Resp B/P (MAP) Pulse Ox O2 Delivery O2 Flow Rate FiO2 05/04/20 09:07 136/81 05/04/20 08:00 98.0 87 20 95 05/03/20 21:00 Room Air 05/03/20 08:25 2 Laboratory Tests Test 05/03/20 12:03 05/03/20 17:16 05/04/20 00:53 05/04/20 06:12 POC Whole Blood Glucose Pending 162 MG/DL (74-106) H 150 MG/DL (74-106) H Pending Test 05/04/20 06:42 White Blood Count 5.8 K/UL (4.8-10.8) Red Blood Count 3.59 M/UL (4.70-6.10) L Hemoglobin 11.0 G/DL (14.2-18.0) L Hematocrit 33.6 % (42.0-52.0) L Mean Corpuscular Volume 94 FL (80-99) Mean Corpuscular Hemoglobin 30.8 PG (27.0-31.0) Mean Corpuscular Hemoglobin Concent 32.9 G/DL (32.0-36.0) Red Cell Distribution Width 16.0 % (11.6-14.8) H Platelet Count 285 K/UL (150-450) Mean Platelet Volume 6.8 FL (6.5-10.1) Neutrophils (%) (Auto) 73.5 % (45.0-75.0) Lymphocytes (%) (Auto) 18.8 % (20.0-45.0) L Monocytes (%) (Auto) 6.1 % (1.0-10.0) Eosinophils (%) (Auto) 0.9 % (0.0-3.0) Basophils (%) (Auto) 0.7 % (0.0-2.0) Sodium Level 144 MMOL/L (136-145) Potassium Level 3.8 MMOL/L (3.5-5.1) Chloride Level 109 MMOL/L (98-107) H Carbon Dioxide Level 24 MMOL/L (21-32) Anion Gap 11 mmol/L (5-15) Blood Urea Nitrogen 12 mg/dL (7-18) Creatinine 0.9 MG/DL (0.55-1.30) Estimat Glomerular Filtration Rate > 60 mL/min (>60) Glucose Level 135 MG/DL (74-106) H Calcium Level 9.1 MG/DL (8.5-10.1) Intake and Output 05/03/20 05/04/20 19:00 07:00 Intake Total 320 ml 120 ml Output Total 1200 ml 600 ml Balance -880 ml -480 ml Intake Oral 120 ml 120 ml IV Total 200 ml Output Urine Total 1200 ml 600 ml # Voids 3 # Bowel Movements 1 1 Objective General appearance: no distress Head: Normocephalic, without obvious abnormality, atraumatic Eyes: conjunctivae/corneas clear. PERRL, EOM's intact. Fundi benign Throat: Lips, mucosa, and tongue normal. Teeth and gums normal Neck: supple, symmetrical, trachea midline, no adenopathy, thyroid: not enlarged, symmetric, no tenderness/mass/nodules, no carotid bruit and no JVD Lungs: clear to auscultation bilaterally Heart: regular rate and rhythm, S1, S2 normal, no murmur, click, rub or gallop Abdomen: soft, non-tender. Bowel sounds normal. No masses, no organomegaly Extremities: extremities normal, atraumatic, no cyanosis or edema Pulses: 2+ and symmetric Skin: Skin color, texture, turgor normal. No rashes or lesions Neurologic: Grossly normal Assessment/Plan Assessment/Plan #Acute on chronic anemia- r/o GI bleed #HTN- accelerated #HLD #DM #dementia #BPH -s/p EGD and colonoscopy 1. Gastritis status post biopsy. 2. One colonic polyp removed, see above for details. 3. Scattered diverticulosis of left colon. 4. Small rectal ulceration. 5. Internal hemorrhoids. - hematology consulted - prbc transfusion prn - monitor hemoglobin - increase losartan to 100mg daily - continue hydralazine prn - flomax - monitor hemoglobin - GI Hermes Sommers.D. May 04, 2020 09:26
--- NOTE | 2020-05-04 10:52 | General Progress Note ---
Subjective ROS Limited/Unobtainable: No Allergies: Coded Allergies: No Known Allergies (Unverified , 04/29/20) Objective Last 24 Hour Vital Signs Date Time Temp Pulse Resp B/P (MAP) Pulse Ox O2 Delivery O2 Flow Rate FiO2 05/04/20 09:07 136/81 05/04/20 08:00 98.0 87 20 136/81 (99) 95 05/04/20 04:00 98.8 80 17 135/70 (91) 96 05/04/20 00:00 99.4 77 17 147/66 (93) 93 05/03/20 21:00 Room Air 05/03/20 20:00 99.1 84 17 106/51 (69) 96 05/03/20 16:00 97.8 67 22 128/75 (92) 97 05/03/20 12:00 98.7 76 21 120/61 (80) 96 Intake and Output 05/03/20 05/04/20 19:00 07:00 Intake Total 320 ml 120 ml Output Total 1200 ml 600 ml Balance -880 ml -480 ml Intake Oral 120 ml 120 ml IV Total 200 ml Output Urine Total 1200 ml 600 ml # Voids 3 # Bowel Movements 1 1 Laboratory Tests 05/03/20 12:03: POC Whole Blood Glucose [Pending] 05/03/20 17:16: POC Whole Blood Glucose 162H 05/04/20 00:53: POC Whole Blood Glucose 150H 05/04/20 06:12: POC Whole Blood Glucose [Pending] 05/04/20 06:42: White Blood Count 5.8, Red Blood Count 3.59L, Hemoglobin 11.0L, Hematocrit 33.6L , Mean Corpuscular Volume 94, Mean Corpuscular Hemoglobin 30.8, Mean Corpuscular Hemoglobin Concent 32.9, Red Cell Distribution Width 16.0H, Platelet Count 285, Mean Platelet Volume 6.8, Neutrophils (%) (Auto) 73.5, Lymphocytes (%) (Auto) 18.8L, Monocytes (%) (Auto) 6.1, Eosinophils (%) (Auto) 0.9, Basophils (%) (Auto) 0.7, Sodium Level 144, Potassium Level 3.8, Chloride Level 109H, Carbon Dioxide Level 24, Anion Gap 11, Blood Urea Nitrogen 12, Creatinine 0.9, Estimat Glomerular Filtration Rate > 60, Glucose Level 135H, Calcium Level 9.1 Height (Feet): 5 Height (Inches): 5 Weight (Pounds): 120 General Appearance: no apparent distress EENT: normal ENT inspection Neck: supple Cardiovascular: normal rate Respiratory/Chest: decreased breath sounds Abdomen: normal bowel sounds, non tender, soft Extremities: non-tender Assessment/Plan Problem List: (1) GI bleed ICD Codes: K92.2 - Gastrointestinal hemorrhage, unspecified SNOMED: 58529889 (2) Anemia ICD Codes: D64.9 - Anemia, unspecified SNOMED: 292475596 Qualifiers: Qualified Codes: D64.9 - Anemia, unspecified (3) Hyperglycemia due to type 2 diabetes mellitus ICD Codes: E11.65 - Type 2 diabetes mellitus with hyperglycemia SNOMED: 686412688944423, 35309713 Qualifiers: Qualified Codes: E11.65 - Type 2 diabetes mellitus with hyperglycemia (4) Hypertension ICD Codes: I10 - Essential (primary) hypertension SNOMED: 93396084, 10840233 Qualifiers: Qualified Codes: I10 - Essential (primary) hypertension Assessment/Plan: s/p EGD and colonoscopy 1. Gastritis status post biopsy. 2. One colonic polyp removed, see above for details. 3. Scattered diverticulosis of left colon. 4. Small rectal ulceration. 5. Internal hemorrhoids. RECOMMENDATIONS: Follow biopsy results and treat accordingly. Resume diet. The patient to be seen by Hematology for further evaluation of cause of anemia either as inpatient or outpatient. Jann Duong MD May 04, 2020 10:52
[2020-05-04 12:00] VITALS: BP 138/76
--- NOTE | 2020-05-04 12:23 | NUR ---
INSURANCE CLINICALS/REVIEW FAXED TO Patient - Luis Antonio Horne [facility] ph# [phone] fax#[phone] [facility] ph#[phone] fax# [phone]
--- NOTE | 2020-05-04 12:37 | Pulmonology Progress Note ---
Subjective ROS Limited/Unobtainable: No Interval Events: None major reported per nursing Constitutional: Reports: no symptoms HEENT: Repors: no symptoms Respiratory: Reports: no symptoms Cardiovascular: Reports: no symptoms Gastrointestinal/Abdominal: Reports: no symptoms Allergies: Coded Allergies: No Known Allergies (Unverified , 04/29/20) Objective Last 24 Hour Vital Signs Date Time Temp Pulse Resp B/P (MAP) Pulse Ox O2 Delivery O2 Flow Rate FiO2 05/04/20 09:07 136/81 05/04/20 08:00 98.0 87 20 136/81 (99) 95 05/04/20 04:00 98.8 80 17 135/70 (91) 96 05/04/20 00:00 99.4 77 17 147/66 (93) 93 05/03/20 21:00 Room Air 05/03/20 20:00 99.1 84 17 106/51 (69) 96 05/03/20 16:00 97.8 67 22 128/75 (92) 97 Intake and Output 05/03/20 05/04/20 19:00 07:00 Intake Total 320 ml 120 ml Output Total 1200 ml 600 ml Balance -880 ml -480 ml Intake Oral 120 ml 120 ml IV Total 200 ml Output Urine Total 1200 ml 600 ml # Voids 3 # Bowel Movements 1 1 General Appearance: no acute distress HEENT: atraumatic Respiratory: lungs clear, other - singultus; resolved Cardiovascular: normal rate Abdomen: soft, non tender Laboratory Tests 05/03/20 17:16: POC Whole Blood Glucose 162H 05/04/20 00:53: POC Whole Blood Glucose 150H 05/04/20 06:12: POC Whole Blood Glucose [Pending] 05/04/20 06:42: White Blood Count 5.8, Red Blood Count 3.59L, Hemoglobin 11.0L, Hematocrit 33.6L , Mean Corpuscular Volume 94, Mean Corpuscular Hemoglobin 30.8, Mean Corpuscular Hemoglobin Concent 32.9, Red Cell Distribution Width 16.0H, Platelet Count 285, Mean Platelet Volume 6.8, Neutrophils (%) (Auto) 73.5, Lymphocytes (%) (Auto) 18.8L, Monocytes (%) (Auto) 6.1, Eosinophils (%) (Auto) 0.9, Basophils (%) (Auto) 0.7, Sodium Level 144, Potassium Level 3.8, Chloride Level 109H, Carbon Dioxide Level 24, Anion Gap 11, Blood Urea Nitrogen 12, Creatinine 0.9, Estimat Glomerular Filtration Rate > 60, Glucose Level 135H, Calcium Level 9.1 05/04/20 11:43: POC Whole Blood Glucose 188H Current Medications Medications (Trade) Dose Ordered Sig/Maryam Route PRN Reason Start Time Stop Time Status Last Admin Dose Admin Acetaminophen (Tylenol) 650 mg Q6H PRN ORAL Temp >100.5 04/30/20 05:00 05/30/20 04:59 05/02/20 12:59 Acetaminophen (Tylenol) 650 mg Q6H PRN ORAL Mild Pain (Pain Scale 1-3) 04/30/20 05:00 05/30/20 04:59 Atorvastatin Calcium (Lipitor) 40 mg BEDTIME ORAL 04/30/20 21:00 07/29/20 20:59 05/03/20 20:48 Dextrose (Dextrose 50%) 25 ml Q30M PRN IV Hypoglycemia 04/30/20 05:00 07/29/20 04:59 Dextrose (Dextrose 50%) 50 ml Q30M PRN IV Hypoglycemia 04/30/20 05:00 07/29/20 04:59 Donepezil HCl (Aricept) 10 mg BID ORAL 04/30/20 09:00 05/30/20 08:59 05/04/20 09:07 Hydralazine HCl (Apresoline) 50 mg Q4H PRN ORAL For High Blood Pressure BP>160 04/30/20 05:00 07/29/20 04:59 04/30/20 20:40 Insulin Aspart (NovoLOG) Q6HR SUBQ 04/30/20 06:00 07/29/20 05:59 05/04/20 11:45 Losartan Potassium (Cozaar) 100 mg DAILY ORAL 04/30/20 09:00 05/30/20 08:59 05/04/20 09:07 Memantine (Namenda) 10 mg DAILY ORAL 04/30/20 09:00 05/30/20 08:59 05/04/20 09:06 Pioglitazone HCl (Actos) 15 mg DAILY ORAL 04/30/20 09:00 05/30/20 08:59 05/04/20 09:07 Sertraline HCl (Zoloft) 25 mg DAILY ORAL 05/03/20 09:00 05/30/20 08:59 05/04/20 09:07 Tamsulosin HCl (Flomax) 0.4 mg DAILY ORAL 04/30/20 09:00 05/30/20 08:59 05/04/20 09:07 Assessment/Plan Assessment/Plan 1. Anemia, history of positive guaiac -Seen by surgery -No acute GI bleed - s/p transfusion, now stable H&H - GI following - stool OB negative - s/p EGD/[place]- gastritis and Bx, s/p one polyp removal 2. Persistent singultus; recurrent -We will order chest x-ray for evaluation -> CXR atelectasis -Consider Thorazine if no resolution of singultus -> will hold for now - Monitor for hypoxia and provide supplemental oxygen as needed 3. Atelectasis on chest x-ray -Given normoxemia, monitor for now Medically stable from pulmonary standpoint The care for this patient was discussed with my supervising physician. Time spent for this case was approximately 31 minutes. Mikal Horne May 04, 2020 12:37
--- NOTE | 2020-05-04 13:39 | Surgery Progress Note ---
Surgery Progress Note Subjective Symptoms: improved, tolerating diet, passing flatus Objective Last 24 Hour Vital Signs Date Time Temp Pulse Resp B/P (MAP) Pulse Ox O2 Delivery O2 Flow Rate FiO2 05/04/20 12:00 97.8 83 20 138/76 (96) 95 05/04/20 09:07 136/81 05/04/20 09:00 Room Air 05/04/20 08:00 98.0 87 20 136/81 (99) 95 05/04/20 04:00 98.8 80 17 135/70 (91) 96 05/04/20 00:00 99.4 77 17 147/66 (93) 93 05/03/20 21:00 Room Air 05/03/20 20:00 99.1 84 17 106/51 (69) 96 05/03/20 16:00 97.8 67 22 128/75 (92) 97 I&O Intake and Output 05/03/20 05/04/20 19:00 07:00 Intake Total 320 ml 120 ml Output Total 1200 ml 600 ml Balance -880 ml -480 ml Intake Oral 120 ml 120 ml IV Total 200 ml Output Urine Total 1200 ml 600 ml # Voids 3 # Bowel Movements 1 1 Dressing: saturated Cardiovascular: RSR Respiratory: decreased breath sounds Abdomen: soft, flat, non-tender, present bowel sounds, non-distended Extremities: no edema, no tenderness, no cyanosis Laboratory Tests Test 05/03/20 17:16 05/04/20 00:53 05/04/20 06:12 05/04/20 06:42 POC Whole Blood Glucose 162 MG/DL (74-106) H 150 MG/DL (74-106) H Pending White Blood Count 5.8 K/UL (4.8-10.8) Red Blood Count 3.59 M/UL (4.70-6.10) L Hemoglobin 11.0 G/DL (14.2-18.0) L Hematocrit 33.6 % (42.0-52.0) L Mean Corpuscular Volume 94 FL (80-99) Mean Corpuscular Hemoglobin 30.8 PG (27.0-31.0) Mean Corpuscular Hemoglobin Concent 32.9 G/DL (32.0-36.0) Red Cell Distribution Width 16.0 % (11.6-14.8) H Platelet Count 285 K/UL (150-450) Mean Platelet Volume 6.8 FL (6.5-10.1) Neutrophils (%) (Auto) 73.5 % (45.0-75.0) Lymphocytes (%) (Auto) 18.8 % (20.0-45.0) L Monocytes (%) (Auto) 6.1 % (1.0-10.0) Eosinophils (%) (Auto) 0.9 % (0.0-3.0) Basophils (%) (Auto) 0.7 % (0.0-2.0) Sodium Level 144 MMOL/L (136-145) Potassium Level 3.8 MMOL/L (3.5-5.1) Chloride Level 109 MMOL/L (98-107) H Carbon Dioxide Level 24 MMOL/L (21-32) Anion Gap 11 mmol/L (5-15) Blood Urea Nitrogen 12 mg/dL (7-18) Creatinine 0.9 MG/DL (0.55-1.30) Estimat Glomerular Filtration Rate > 60 mL/min (>60) Glucose Level 135 MG/DL (74-106) H Calcium Level 9.1 MG/DL (8.5-10.1) Test 05/04/20 11:43 POC Whole Blood Glucose 188 MG/DL (74-106) H Plan Problems: (1) Hypertension (2) Hyperglycemia due to type 2 diabetes mellitus (3) Anemia (4) GI bleed Assessment & Plan: 79M with significant anemia. as per report history of guiac positive afebrile, HD stable rectal exam without gross blood. transfused prbc and improved comfortable no complaints tolerating diet GI eval for colonoscopy/egd? okay for diet will follow with exam and recs trend labs thank you egd / colonoscopy planned 05/03 Arnoldo Oropeza May 04, 2020 13:39
[2020-05-04 16:00] VITALS: BP 122/64
[2020-05-04] MEDS ORDERED: Tubing IV Secondary IV ONE (18:09)
[2020-05-04] MEDS ORDERED: NS 275ml ONE (18:09)
--- NOTE | 2020-05-04 19:34 | NUR ---
NURSE HAND-OFF: Important Events on Shift: Pt stable throughout shift. Patient Status: Stable Diet: CCHO (low) mech-soft, finely chopped Pending Orders: None Pending Results/Labs: None Pending MD notification: None Latest Vital Signs: Temperature 98.9 , Pulse 80 , B/P 122 /64 , Respiratory Rate 20 , O2 SAT 97 , Room Air, O2 Flow Rate 2 . Vital Sign Comment: Stable Latest Pierce Fall Score: 50 Fall Risk: High Risk Safety Measures: Call light Within Reach, Bed Alarm Zone 2, Side Rails Side Rails x3, Bed position Low and Locked. Fall Precautions: Yellow Socks Door Sign Patient Fall Education Report given to ZAHRAA Lowe.
[2020-05-04 20:00] VITALS: BP 126/75
--- NOTE | 2020-05-04 20:26 | NUR ---
NURSES NOTE: Received report from ZAHRAA Davey. Rounds completed. Pt in bed, sleeping, awakens to name. No outward s/s of distress noted. Breathin is even and unlabored on RA. Pt continues to have hiccups. Dr. trevino. Bridgett Q6H. IV replaced, R wrist 22g, hep locked. All due medications will be administered. Pt will continue to be monitored.
[2020-05-04] MEDS: Atorvastatin 20mg tab ORAL SCH (20:43)
[2020-05-05] VITALS: BP_SYST 151; BP_SYST 163; BP_DIAS 72; BP_DIAS 74
[2020-05-05] MEDS: HydrALAZINE 50mg tab ORAL PRN (01:31)
[2020-05-05 04:00] VITALS: BP 128/75
[2020-05-05] MEDS: NovoLOG Insulin Flexpen SUBQ SCH ×5 (06:09→23:47)
--- NOTE | 2020-05-05 07:45 | NUR ---
NURSE NOTES: Pt lying in bed w/bed in lowest position and call light within reach. Pt Danish-speaking only; VSS; and in no apparent distress. Will continue to monitor.
[2020-05-05 08:00] VITALS: BP 131/66
--- NOTE | 2020-05-05 08:19 | NUR ---
NURSE HAND-OFF: Important Events on Shift:[N/A] Patient Status: [stable] Diet: [[facility] soft fine chopped pureed soup] Pending Orders: [n/a] Pending Results/Labs:[n/a] Pending MD notification:[n/a] Latest Vital Signs: Temperature 98.9 , Pulse 82 , B/P 128 /75 , Respiratory Rate 19 , O2 SAT 96 , Room Air, O2 Flow Rate 2 . Vital Sign Comment: [wnl] Latest Pierce Fall Score: 50 Fall Risk: High Risk Safety Measures: Call light Within Reach, Bed Alarm Zone 2, Side Rails Side Rails x3, Bed position Low and Locked. Fall Precautions: Yellow Socks Door Sign Patient Fall Education Report given to [ZAHRAA Davey].
--- NOTE | 2020-05-05 08:25 | Surgery Progress Note ---
Surgery Progress Note Subjective Additional Comments afebrile, HD stable labs noted micro reviewed comfortable appearing no n/v Objective Last 24 Hour Vital Signs Date Time Temp Pulse Resp B/P (MAP) Pulse Ox O2 Delivery O2 Flow Rate FiO2 05/05/20 04:00 98.9 82 19 128/75 (92) 96 05/05/20 00:00 99.0 76 20 151/74 (99) 95 05/04/20 21:00 Room Air 05/04/20 20:00 98.6 82 18 126/75 (92) 92 05/04/20 16:00 98.9 80 20 122/64 (83) 97 05/04/20 12:00 97.8 83 20 138/76 (96) 95 05/04/20 09:07 136/81 05/04/20 09:00 Room Air I&O Intake and Output 05/04/20 05/05/20 19:00 07:00 Intake Total 600 ml Output Total 800 ml 500 ml Balance -200 ml -500 ml Intake Oral 600 ml Output Urine Total 800 ml 500 ml # Voids 1 Cardiovascular: RSR Respiratory: clear, decreased breath sounds Abdomen: soft, non-tender, present bowel sounds, non-distended Extremities: no edema, no tenderness, no cyanosis Laboratory Tests Test 05/04/20 11:43 05/04/20 17:43 05/05/20 00:52 05/05/20 06:03 POC Whole Blood Glucose 188 MG/DL (74-106) H Pending 124 MG/DL (74-106) H 152 MG/DL (74-106) H Plan Problems: (1) Hypertension (2) Hyperglycemia due to type 2 diabetes mellitus (3) Anemia (4) GI bleed Assessment & Plan: 79M with significant anemia. as per report history of guiac positive afebrile, HD stable rectal exam without gross blood. transfused prbc and improved comfortable no complaints tolerating diet GI eval for colonoscopy/egd? okay for diet will follow with exam and recs trend labs thank you egd / colonoscopy planned 05/03 Arnoldo Oropeza May 05, 2020 08:25
--- NOTE | 2020-05-05 08:52 | Internal Med Progress Note ---
Subjective Physician Name Hermes Duff Attending Physician Hermes Duff M.D. Current Medications Medications (Trade) Dose Ordered Sig/Maryam Route PRN Reason Start Time Stop Time Status Last Admin Dose Admin Acetaminophen (Tylenol) 650 mg Q6H PRN ORAL Temp >100.5 04/30/20 05:00 05/30/20 04:59 05/02/20 12:59 Acetaminophen (Tylenol) 650 mg Q6H PRN ORAL Mild Pain (Pain Scale 1-3) 04/30/20 05:00 05/30/20 04:59 Atorvastatin Calcium (Lipitor) 40 mg BEDTIME ORAL 04/30/20 21:00 07/29/20 20:59 05/04/20 20:43 Dextrose (Dextrose 50%) 25 ml Q30M PRN IV Hypoglycemia 04/30/20 05:00 07/29/20 04:59 Dextrose (Dextrose 50%) 50 ml Q30M PRN IV Hypoglycemia 04/30/20 05:00 07/29/20 04:59 Donepezil HCl (Aricept) 10 mg BID ORAL 04/30/20 09:00 05/30/20 08:59 05/04/20 17:43 Hydralazine HCl (Apresoline) 50 mg Q4H PRN ORAL For High Blood Pressure BP>160 04/30/20 05:00 07/29/20 04:59 04/30/20 20:40 Insulin Aspart (NovoLOG) Q6HR SUBQ 04/30/20 06:00 07/29/20 05:59 05/05/20 06:09 Losartan Potassium (Cozaar) 100 mg DAILY ORAL 04/30/20 09:00 05/30/20 08:59 05/04/20 09:07 Memantine (Namenda) 10 mg DAILY ORAL 04/30/20 09:00 05/30/20 08:59 05/04/20 09:06 Pioglitazone HCl (Actos) 15 mg DAILY ORAL 04/30/20 09:00 05/30/20 08:59 05/04/20 09:07 Sertraline HCl (Zoloft) 25 mg DAILY ORAL 05/03/20 09:00 05/30/20 08:59 05/04/20 09:07 Tamsulosin HCl (Flomax) 0.4 mg DAILY ORAL 04/30/20 09:00 05/30/20 08:59 05/04/20 09:07 Allergies: Coded Allergies: No Known Allergies (Unverified , 04/29/20) Subjective hemoglobin stable s/p EGD and colonoscopy 1. Gastritis status post biopsy. 2. One colonic polyp removed, see above for details. 3. Scattered diverticulosis of left colon. 4. Small rectal ulceration. 5. Internal hemorrhoids. heme consult Objective Last Vital Signs Date Time Temp Pulse Resp B/P (MAP) Pulse Ox O2 Delivery O2 Flow Rate FiO2 05/05/20 04:00 98.9 82 19 128/75 (92) 96 05/04/20 21:00 Room Air 05/03/20 08:25 2 Laboratory Tests Test 05/04/20 11:43 05/04/20 17:43 05/05/20 00:52 05/05/20 06:03 POC Whole Blood Glucose 188 MG/DL (74-106) H Pending 124 MG/DL (74-106) H 152 MG/DL (74-106) H Intake and Output 05/04/20 05/05/20 19:00 07:00 Intake Total 600 ml Output Total 800 ml 500 ml Balance -200 ml -500 ml Intake Oral 600 ml Output Urine Total 800 ml 500 ml # Voids 1 Objective General appearance: no distress Head: Normocephalic, without obvious abnormality, atraumatic Eyes: conjunctivae/corneas clear. PERRL, EOM's intact. Fundi benign Throat: Lips, mucosa, and tongue normal. Teeth and gums normal Neck: supple, symmetrical, trachea midline, no adenopathy, thyroid: not enlarged, symmetric, no tenderness/mass/nodules, no carotid bruit and no JVD Lungs: clear to auscultation bilaterally Heart: regular rate and rhythm, S1, S2 normal, no murmur, click, rub or gallop Abdomen: soft, non-tender. Bowel sounds normal. No masses, no organomegaly Extremities: extremities normal, atraumatic, no cyanosis or edema Pulses: 2+ and symmetric Skin: Skin color, texture, turgor normal. No rashes or lesions Neurologic: Grossly normal Assessment/Plan Assessment/Plan #Acute on chronic anemia- r/o GI bleed #HTN- accelerated #HLD #DM #dementia #BPH -s/p EGD and colonoscopy 1. Gastritis status post biopsy. 2. One colonic polyp removed, see above for details. 3. Scattered diverticulosis of left colon. 4. Small rectal ulceration. 5. Internal hemorrhoids. - hematology consulted - prbc transfusion prn - monitor hemoglobin - increase losartan to 100mg daily - continue hydralazine prn - flomax - monitor hemoglobin - GI Hermes Sommers M.D. May 05, 2020 08:52
[2020-05-05] MEDS: Memantine 10mg tab ORAL SCH (09:50)
[2020-05-05] MEDS: Sertraline 50mg tab ORAL SCH (09:50)
[2020-05-05] MEDS: Tamsulosin 0.4mg cap ORAL SCH (09:50)
[2020-05-05] MEDS: Losartan 50mg tab ORAL SCH (09:51)
[2020-05-05] MEDS: Donepezil 10mg tab ORAL SCH ×2 (09:51→17:55)
--- NOTE | 2020-05-05 10:42 | NUR ---
RD ASSESSMENT & RECOMMENDATIONS SEE CARE ACTIVITY FOR COMPLETE ASSESSMENT DAILY ESTIMATED NEEDS: Needs based on Cardiac, DM, wounds 55kg 25-35 kcals/kg 8677-7754 total kcals 1.25-1.5 g protein/kg 69-83 g total protein 25-30 mL/kg 5172-5902 total fluid mLs NUTRITION DIAGNOSIS: Altered nutrition related lab values r/t DM as evidenced by elev BG(135-185) w/ elev POC (124-300). CURRENT DIET: CCHO LOW (ms finely chopped + liquify puree) PO DIET [facility]OMM[facility]ATIONS: [facility] ADDITIONAL RECOMMENDATIONS: 1) Add Glucerna BID (250 kcal/each) 2) EAN BID for skin integrity 3) Check lytes daily 4) [employer] for appropriate texture and improved food acceptance
--- NOTE | 2020-05-05 10:58 | Pulmonology Progress Note ---
Subjective ROS Limited/Unobtainable: No Interval Events: None major reported per nursing Constitutional: Reports: no symptoms HEENT: Repors: no symptoms Respiratory: Reports: no symptoms Cardiovascular: Reports: no symptoms Gastrointestinal/Abdominal: Reports: no symptoms Allergies: Coded Allergies: No Known Allergies (Unverified , 04/29/20) Objective Last 24 Hour Vital Signs Date Time Temp Pulse Resp B/P (MAP) Pulse Ox O2 Delivery O2 Flow Rate FiO2 05/05/20 09:51 131/66 05/05/20 08:00 97.6 84 18 131/66 (87) 97 05/05/20 04:00 98.9 82 19 128/75 (92) 96 05/05/20 00:00 99.0 76 20 151/74 (99) 95 05/04/20 21:00 Room Air 05/04/20 20:00 98.6 82 18 126/75 (92) 92 05/04/20 16:00 98.9 80 20 122/64 (83) 97 05/04/20 12:00 97.8 83 20 138/76 (96) 95 Intake and Output 05/04/20 05/05/20 19:00 07:00 Intake Total 600 ml Output Total 800 ml 500 ml Balance -200 ml -500 ml Intake Oral 600 ml Output Urine Total 800 ml 500 ml # Voids 1 General Appearance: no acute distress HEENT: atraumatic Respiratory: lungs clear, other - singultus; resolved Cardiovascular: normal rate Abdomen: soft, non tender Laboratory Tests 05/04/20 11:43: POC Whole Blood Glucose 188H 05/04/20 17:43: POC Whole Blood Glucose [Pending] 05/05/20 00:52: POC Whole Blood Glucose 124H 05/05/20 06:03: POC Whole Blood Glucose 152H 05/05/20 09:30: White Blood Count [Pending], Red Blood Count [Pending], Hemoglobin [Pending], Hematocrit [Pending], Mean Corpuscular Volume [Pending], Mean Corpuscular Hemoglobin [Pending], Mean Corpuscular Hemoglobin Concent [Pending], Red Cell Distribution Width [Pending], Platelet Count [Pending], Mean Platelet Volume [Pending], Neutrophils (%) (Auto) [Pending], Lymphocytes (%) (Auto) [Pending], Monocytes (%) (Auto) [Pending], Eosinophils (%) (Auto) [Pending], Basophils (%) (Auto) [Pending] Current Medications Medications (Trade) Dose Ordered Sig/Maryam Route PRN Reason Start Time Stop Time Status Last Admin Dose Admin Acetaminophen (Tylenol) 650 mg Q6H PRN ORAL Temp >100.5 04/30/20 05:00 05/30/20 04:59 05/02/20 12:59 Acetaminophen (Tylenol) 650 mg Q6H PRN ORAL Mild Pain (Pain Scale 1-3) 04/30/20 05:00 05/30/20 04:59 Atorvastatin Calcium (Lipitor) 40 mg BEDTIME ORAL 04/30/20 21:00 07/29/20 20:59 05/04/20 20:43 Dextrose (Dextrose 50%) 25 ml Q30M PRN IV Hypoglycemia 04/30/20 05:00 07/29/20 04:59 Dextrose (Dextrose 50%) 50 ml Q30M PRN IV Hypoglycemia 04/30/20 05:00 07/29/20 04:59 Donepezil HCl (Aricept) 10 mg BID ORAL 04/30/20 09:00 05/30/20 08:59 05/05/20 09:51 Hydralazine HCl (Apresoline) 50 mg Q4H PRN ORAL For High Blood Pressure BP>160 04/30/20 05:00 07/29/20 04:59 04/30/20 20:40 Insulin Aspart (NovoLOG) Q6HR SUBQ 04/30/20 06:00 07/29/20 05:59 05/05/20 06:09 Losartan Potassium (Cozaar) 100 mg DAILY ORAL 04/30/20 09:00 05/30/20 08:59 05/05/20 09:51 Memantine (Namenda) 10 mg DAILY ORAL 04/30/20 09:00 05/30/20 08:59 05/05/20 09:50 Pioglitazone HCl (Actos) 15 mg DAILY ORAL 04/30/20 09:00 05/30/20 08:59 05/05/20 09:50 Sertraline HCl (Zoloft) 25 mg DAILY ORAL 05/03/20 09:00 05/30/20 08:59 05/05/20 09:50 Tamsulosin HCl (Flomax) 0.4 mg DAILY ORAL 04/30/20 09:00 05/30/20 08:59 05/05/20 09:50 Assessment/Plan Assessment/Plan 1. Anemia, history of positive guaiac -Seen by surgery -No acute GI bleed - s/p transfusion, now stable H&H - GI following - stool OB negative - s/p EGD/[place]- gastritis and Bx, s/p one polyp removal 2. Persistent singultus; recurrent -We will order chest x-ray for evaluation -> CXR atelectasis -Consider Thorazine if no resolution of singultus -> will hold for now - Monitor for hypoxia and provide supplemental oxygen as needed 3. Atelectasis on chest x-ray -Given normoxemia, monitor for now Medically stable from pulmonary standpoint The care for this patient was discussed with my supervising physician. Time spent for this case was approximately 31 minutes. Mikal Horne May 05, 2020 10:58
[2020-05-05 11:18] LABS: BASOPHILS % (AUTO) 0.5 % (0.0-2.0); EOSINOPHILS % (AUTO) 0.1 % (0.0-3.0); HEMOGLOBIN 11.5 G/DL (14.2-18.0); LYMPHOCYTES % (AUTO) 15.4 % (20.0-45.0); MEAN CORPUSCULAR VOLUME 94 FL (80-99); MONOCYTES % (AUTO) 3.7 % (1.0-10.0); NEUTROPHILS % (AUTO) 80.4 % (45.0-75.0); PLATELET COUNT 303 K/UL (150-450); RED BLOOD COUNT 3.73 M/UL (4.70-6.10); RED CELL DISTRIBUTION WIDTH 15.5 % (11.6-14.8); WHITE BLOOD COUNT 5.9 K/UL (4.8-10.8)
[2020-05-05 12:00] VITALS: BP 122/73
--- NOTE | 2020-05-05 13:30 | General Progress Note ---
Subjective ROS Limited/Unobtainable: No Allergies: Coded Allergies: No Known Allergies (Unverified , 04/29/20) Objective Last 24 Hour Vital Signs Date Time Temp Pulse Resp B/P (MAP) Pulse Ox O2 Delivery O2 Flow Rate FiO2 05/05/20 12:00 99.4 79 18 122/73 (89) 95 05/05/20 09:51 131/66 05/05/20 09:00 Room Air 05/05/20 08:00 97.6 84 18 131/66 (87) 97 05/05/20 04:00 98.9 82 19 128/75 (92) 96 05/05/20 00:00 99.0 76 20 151/74 (99) 95 05/04/20 21:00 Room Air 05/04/20 20:00 98.6 82 18 126/75 (92) 92 05/04/20 16:00 98.9 80 20 122/64 (83) 97 Intake and Output 05/04/20 05/05/20 19:00 07:00 Intake Total 600 ml Output Total 800 ml 500 ml Balance -200 ml -500 ml Intake Oral 600 ml Output Urine Total 800 ml 500 ml # Voids 1 Laboratory Tests 05/04/20 17:43: POC Whole Blood Glucose [Pending] 05/05/20 00:52: POC Whole Blood Glucose 124H 05/05/20 06:03: POC Whole Blood Glucose 152H 05/05/20 09:30: White Blood Count 5.9, Red Blood Count 3.73L, Hemoglobin 11.5L, Hematocrit 35.0L , Mean Corpuscular Volume 94, Mean Corpuscular Hemoglobin 30.9, Mean Corpuscular Hemoglobin Concent 33.0, Red Cell Distribution Width 15.5H, Platelet Count 303, Mean Platelet Volume 6.7, Neutrophils (%) (Auto) 80.4H, Lymphocytes (%) (Auto) 15.4L, Monocytes (%) (Auto) 3.7, Eosinophils (%) (Auto) 0.1, Basophils (%) (Auto) 0.5, Reticulocyte Count 1.2 05/05/20 12:08: POC Whole Blood Glucose 182H Height (Feet): 5 Height (Inches): 5 Weight (Pounds): 120 General Appearance: no apparent distress EENT: normal ENT inspection Neck: supple Cardiovascular: normal rate Respiratory/Chest: decreased breath sounds Abdomen: normal bowel sounds, non tender, soft Extremities: non-tender Assessment/Plan Problem List: (1) GI bleed ICD Codes: K92.2 - Gastrointestinal hemorrhage, unspecified SNOMED: 03195511 (2) Anemia ICD Codes: D64.9 - Anemia, unspecified SNOMED: 997865617 Qualifiers: Qualified Codes: D64.9 - Anemia, unspecified (3) Hyperglycemia due to type 2 diabetes mellitus ICD Codes: E11.65 - Type 2 diabetes mellitus with hyperglycemia SNOMED: 696623016983251, 49197151 Qualifiers: Qualified Codes: E11.65 - Type 2 diabetes mellitus with hyperglycemia (4) Hypertension ICD Codes: I10 - Essential (primary) hypertension SNOMED: 05650299, 52934582 Qualifiers: Qualified Codes: I10 - Essential (primary) hypertension Assessment/Plan: s/p EGD and colonoscopy 1. Gastritis status post biopsy. 2. One colonic polyp removed, see above for details. 3. Scattered diverticulosis of left colon. 4. Small rectal ulceration. 5. Internal hemorrhoids. RECOMMENDATIONS: Follow biopsy results and treat accordingly. The patient to be seen by Hematology for further evaluation of cause of anemia either as inpatient or outpatient. Jann Duong MD May 05, 2020 13:30
--- NOTE | 2020-05-05 13:32 | NUR ---
CASE MANAGEMENT:REVIEW 05/04/20 SI: ANEMIA...S/P 2 UNITS PRBC'S 99.4 79 18 122/73 95% RA H/H-11.5/35.0 IS: COZAAR PO QD FLOMAX PO QD ACTOS PO QD NAMENDA PO QD ARICEPT PO BID NOVOLOG SQ Q6HRS ZOLOFT PO QD : MED/SURG STATUS 4 EAST DCP: CV PAVILION PLAN: HOPE TO DISCHARGE TOMORROW AFTER SEEN BY HEMATOLOGY
[2020-05-05] MEDS ORDERED: Varibar Nectar 240ml MC PRN (13:45)
[2020-05-05] MEDS ORDERED: Varibar Honey 250ml MC PRN (13:45)
[2020-05-05] MEDS ORDERED: Varibar Pudding 230ml MC PRN (13:45)
[2020-05-05] MEDS ORDERED: Varibar Thin Liquid powder 148gm MC PRN (13:45)
[2020-05-05 16:00] VITALS: BP 138/69
--- NOTE | 2020-05-05 18:19 | NUR ---
INSURANCE CLINICALS/REVIEW FAXED TO [facility] ph# [phone] fax#[phone] [facility] ph#[phone] fax# [phone]
--- NOTE | 2020-05-05 19:26 | NUR ---
NURSE HAND-OFF: Important Events on Shift: DCP to return to [facility] tomorrow. Patient Status: Stable Diet: CCHO (low) pureed moist Pending Orders: Swallow eval Pending Results/Labs: None Pending MD notification: None Latest Vital Signs: Temperature 98.6 , Pulse 78 , B/P 138 /69 , Respiratory Rate 18 , O2 SAT 97 , Room Air, O2 Flow Rate 2 . Vital Sign Comment: Stable Latest Pierce Fall Score: 50 Fall Risk: High Risk Safety Measures: Call light Within Reach, Bed Alarm Zone 2, Side Rails Side Rails x3, Bed position Low and Locked. Fall Precautions: Yellow Socks Door Sign Patient Fall Education Report given to ZAHRAA Hernandez.
--- NOTE | 2020-05-05 19:48 | NUR ---
NURSE NOTES: Patient in bed, awake, alert, Vietnamese speaking, able to follow simple commands. Bed in low and locked position. Provided safe environment. Kept clean and comfortable. Respiration is even and unlabored. No complaint of pain or discomfort noted. Abdomen is soft and non distended. Iv site noted. Call light is at bedside. Will continue plan of care.
[2020-05-05 20:00] VITALS: BP 131/66
[2020-05-05] MEDS: Atorvastatin 20mg tab ORAL SCH (20:43)
--- NOTE | 2020-05-05 21:16 | NUR ---
NURSE NOTES: Patient removed iv, attempted to educate patient of IV and to use call light. Will reassess and reinsert new IV.
[2020-05-06] VITALS: BP 143/68
[2020-05-06 04:00] VITALS: BP 128/57
[2020-05-06] MEDS: NovoLOG Insulin Flexpen SUBQ SCH ×2 (05:15→12:00)
--- NOTE | 2020-05-06 06:38 | Consultation ---
History of Present Illness General Chief Complaint: Abnormal Labs Present Illness Allergies: Coded Allergies: No Known Allergies (Unverified , 04/29/20) Medication History Scheduled Apixaban (Eliquis*), 2.5 MG ORAL BID, (Reported) Atorvastatin (Lipitor), 40 MG ORAL BEDTIME, (Reported) Donepezil Hcl* (Donepezil Hcl*), 10 MG ORAL BID, (Reported) Losartan Potassium* (Losartan Potassium*), 25 MG ORAL DAILY, (Reported) Memantine Hcl* (Namenda*), 10 MG ORAL DAILY, (Reported) Pioglitazone Hcl* (Actos*), 15 MG ORAL DAILY, (Reported) Sertraline Hcl* (Sertraline Hcl*), 25 MG ORAL DAILY, (Reported) Tamsulosin HCl (Flomax), 0.4 MG ORAL BEDTIME, (Reported) Scheduled PRN Linaclotide (Linzess), 290 MCG PO for IBS, (Reported) Miscellaneous Medications Insulin Lispro (Humalog), 0 SUBQ, (Reported) Patient History Healthcare decision maker Resuscitation status Advanced Directive on File Physical Exam Last 24 Hour Vital Signs Date Time Temp Pulse Resp B/P (MAP) Pulse Ox O2 Delivery O2 Flow Rate FiO2 05/06/20 04:00 98.7 82 17 128/57 (80) 96 05/06/20 00:00 98.9 72 19 143/68 (93) 94 05/05/20 21:00 Room Air 05/05/20 20:00 98.3 87 20 131/66 (87) 97 05/05/20 16:00 98.6 78 18 138/69 (92) 97 05/05/20 12:00 99.4 79 18 122/73 (89) 95 05/05/20 09:51 131/66 05/05/20 09:00 Room Air 05/05/20 08:00 97.6 84 18 131/66 (87) 97 Intake and Output 05/05/20 05/06/20 19:00 07:00 Intake Total 480 ml Output Total 800 ml 1100 ml Balance -320 ml -1100 ml Intake Oral 480 ml Output Urine Total 800 ml 1100 ml # Voids 1 Laboratory Tests Test 05/05/20 09:30 05/05/20 12:08 05/06/20 05:14 White Blood Count 5.9 K/UL (4.8-10.8) Red Blood Count 3.73 M/UL (4.70-6.10) L Hemoglobin 11.5 G/DL (14.2-18.0) L Hematocrit 35.0 % (42.0-52.0) L Mean Corpuscular Volume 94 FL (80-99) Mean Corpuscular Hemoglobin 30.9 PG (27.0-31.0) Mean Corpuscular Hemoglobin Concent 33.0 G/DL (32.0-36.0) Red Cell Distribution Width 15.5 % (11.6-14.8) H Platelet Count 303 K/UL (150-450) Mean Platelet Volume 6.7 FL (6.5-10.1) Neutrophils (%) (Auto) 80.4 % (45.0-75.0) H Lymphocytes (%) (Auto) 15.4 % (20.0-45.0) L Monocytes (%) (Auto) 3.7 % (1.0-10.0) Eosinophils (%) (Auto) 0.1 % (0.0-3.0) Basophils (%) (Auto) 0.5 % (0.0-2.0) Reticulocyte Count 1.2 % (0.5-2.0) POC Whole Blood Glucose 182 MG/DL (74-106) H 125 MG/DL (74-106) H Height (Feet): 5 Height (Inches): 5 Weight (Pounds): 120 Medications Current Medications Medications (Trade) Dose Ordered Sig/Maryam Route PRN Reason Start Time Stop Time Status Last Admin Dose Admin Acetaminophen (Tylenol) 650 mg Q6H PRN ORAL Temp >100.5 04/30/20 05:00 05/30/20 04:59 05/02/20 12:59 Acetaminophen (Tylenol) 650 mg Q6H PRN ORAL Mild Pain (Pain Scale 1-3) 04/30/20 05:00 05/30/20 04:59 Atorvastatin Calcium (Lipitor) 40 mg BEDTIME ORAL 04/30/20 21:00 07/29/20 20:59 05/05/20 20:43 Barium Sulfate (Varibar Honey) 250 ml NOW PRN MC RAD 05/05/20 13:45 05/08/20 13:34 Barium Sulfate (Varibar [place]) 240 ml NOW PRN MC RAD 05/05/20 13:45 05/08/20 13:34 Barium Sulfate (Varibar Pudding) 230 ml NOW PRN MC RAD 05/05/20 13:45 05/08/20 13:34 Barium Sulfate (Varibar Thin Liquid powder) 148 gm NOW PRN MC RAD 05/05/20 13:45 05/08/20 13:34 Dextrose (Dextrose 50%) 25 ml Q30M PRN IV Hypoglycemia 04/30/20 05:00 07/29/20 04:59 Dextrose (Dextrose 50%) 50 ml Q30M PRN IV Hypoglycemia 04/30/20 05:00 07/29/20 04:59 Donepezil HCl (Aricept) 10 mg BID ORAL 04/30/20 09:00 05/30/20 08:59 05/05/20 17:55 Hydralazine HCl (Apresoline) 50 mg Q4H PRN ORAL For High Blood Pressure BP>160 04/30/20 05:00 07/29/20 04:59 04/30/20 20:40 Insulin Aspart (NovoLOG) Q6HR SUBQ 04/30/20 06:00 07/29/20 05:59 05/05/20 23:47 Losartan Potassium (Cozaar) 100 mg DAILY ORAL 04/30/20 09:00 05/30/20 08:59 05/05/20 09:51 Memantine (Namenda) 10 mg DAILY ORAL 04/30/20 09:00 05/30/20 08:59 05/05/20 09:50 Pioglitazone HCl (Actos) 15 mg DAILY ORAL 04/30/20 09:00 05/30/20 08:59 05/05/20 09:50 Sertraline HCl (Zoloft) 25 mg DAILY ORAL 05/03/20 09:00 05/30/20 08:59 05/05/20 09:50 Tamsulosin HCl (Flomax) 0.4 mg DAILY ORAL 04/30/20 09:00 05/30/20 08:59 05/05/20 09:50 Assessment/Plan Assessment/Plan: Hematology Consultation REQ MD: Hermes Duff RFC: Anemia evaluation DOS: 05/06/2020 HPI This is an 79-year-old Turkmen speaking male [facility] He presents with chief complaint of abnormal lab. His hemoglobin was 7.1. Patient has no complaint. No evidence of active bleeding. No nausea vomiting or diarrhea. No fever chills. Negative Covid test on April 17. No other complaint. Is s/p transfusion and did have endoscopy, records reviewed, now hgb 11-12 range. 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 COVID-19 Screening: Negative COVID-19 COVID-19 Testing Source: [facility] Patient History Past Medical History: see triage record, old chart reviewed, HTN Past Surgical History: other Pertinent Family History: none Social History: Denies: smoking Immunizations: other Reviewed Nursing Documentation: PMH: Agreed; PSxH: Agreed Nursing Documentation-PMH Past Medical History: No History, Except For Hx Hypertension: Yes Hx Neurological Problems: Yes - dementia Review of Systems Eye: Denies: eye pain, blurred vision ENT: Denies: ear pain, nose congestion, throat swelling Respiratory: Denies: cough, shortness of breath Cardiovascular: Denies: chest pain, palpitations Gastrointestinal: Denies: abdominal pain, diarrhea, nausea, vomiting Musculoskeletal: Denies: back pain, joint pain Skin: Denies: rash Neurological: Denies: headache, numbness Endocrine: Denies: increased thirst, increased urine Hematologic/Lymphatic: Denies: easy bruising All Other Systems: negative except mentioned in HPI PE Vitals: reviewed, normal General no apparent distress, alert, Chronically Ill Heent hearing grossly normal, normal pharynx Neck: full range of motion, supple, no meningismus Respiratory: chest non-tender, lungs clear, normal breath sounds Cardiovascular: regular rate, rhythm, no murmur Gastrointestinal: normal bowel sounds, non tender, no mass Musculoskeletal: back normal, normal range of motion, gait/station normal Psychiatric: mood/affect normal Labs: reviewed Imaging: noted Assessment and Recs # Anemia due to prior gi bleeding, occult +, has since resolved --> s/p EGD/[place]- gastritis and Bx, s/p one polyp removal --> anemia panel ordered and is iron repleted --> seen by gi and by surgery --> No acute GI bleed --> transfuse on prn basis --> stable for dc # Atelectasis on chest x-ray -> Given normoxemia, monitor for now # HTN- accelerated --> per cards, recs noted # HLD --> lipitor, asa as needed # DM --> a1c goal <8 --> iss, accuchecs # Dementia # Interneral hemorrhoids # BPH # Dvt ppx scds Appreciate consultation and dw Ulysses Moran MD May 06, 2020 06:38
--- NOTE | 2020-05-06 07:26 | NUR ---
NURSE HAND-OFF: Important Events on Shift:WNL Patient Status: Diet: REg, puree Pending Orders: Pending Results/Labs: Pending MD notification: Latest Vital Signs: Temperature 98.7 , Pulse 82 , B/P 128 /57 , Respiratory Rate 17 , O2 SAT 96 , Room Air, O2 Flow Rate 2 . Vital Sign Comment: WNL Latest Pierce Fall Score: 50 Fall Risk: High Risk Safety Measures: Call light Within Reach, Bed Alarm Zone 2, Side Rails Side Rails x3, Bed position Low and Locked. Fall Precautions: Yellow Socks Door Sign Patient Fall Education Report given to ZAHRAA Reyes.
--- NOTE | 2020-05-06 07:28 | NUR ---
NURSE NOTES: Handoff received from David VITAL. Patient is awake and alert, no signs of acute distress noted, no reports of pain or discomfort. Left and right forearm IVs are intact. Larry catheter is patent and draining to gravity. Bed is low and locked, side rails up x2, call light is within reach.
[2020-05-06 07:56] LABS: BASOPHILS % (AUTO) 0.7 % (0.0-2.0); EOSINOPHILS % (AUTO) 1.3 % (0.0-3.0); HEMATOCRIT 35.1 % (42.0-52.0); HEMOGLOBIN 11.5 G/DL (14.2-18.0); LYMPHOCYTES % (AUTO) 14.8 % (20.0-45.0); MEAN CORPUSCULAR VOLUME 93 FL (80-99); NEUTROPHILS % (AUTO) 77.1 % (45.0-75.0); PLATELET COUNT 287 K/UL (150-450); RED BLOOD COUNT 3.77 M/UL (4.70-6.10); RED CELL DISTRIBUTION WIDTH 15.2 % (11.6-14.8); WHITE BLOOD COUNT 6.1 K/UL (4.8-10.8)
[2020-05-06 08:00] VITALS: BP 158/73
[2020-05-06 08:10] LABS: ANION GAP 7 mmol/L (5-15); BLOOD UREA NITROGEN 11 mg/dL (7-18); CARBON DIOXIDE 28 MMOL/L (21-32); CHLORIDE 106 MMOL/L (98-107); CREATININE 0.8 MG/DL (0.55-1.30); PHOSPHORUS 3.6 MG/DL (2.5-4.9); POTASSIUM 3.5 MMOL/L (3.5-5.1); SODIUM 141 MMOL/L (136-145)
[2020-05-06] MEDS: Tamsulosin 0.4mg cap ORAL SCH (09:31)
[2020-05-06 09:32] VITALS: BP 158/73
[2020-05-06] MEDS: Memantine 10mg tab ORAL SCH (09:32)
[2020-05-06] MEDS: Losartan 50mg tab ORAL SCH (09:32)
[2020-05-06] MEDS: Donepezil 10mg tab ORAL SCH (09:32)
[2020-05-06] MEDS: Sertraline 50mg tab ORAL SCH (09:32)
--- NOTE | 2020-05-06 09:56 | NUR ---
*-*DISCHARGE PLANNING*-* PATIENT HAS BEEN REFERRED TO: [facility] P: [phone] S/W MICHAEL , ADMISSIONS IS IN A MEETING AT THE MOMENT, CALL BACK IN 15 MINS.
--- NOTE | 2020-05-06 10:40 | NUR ---
*-*DISCHARGE PLANNING*-* PATIENT HAS BEEN ACCEPTED AND WILL BE DISCHARGED TO: [facility] P: [phone] FOR NURSE TO NURSE REPORT ROOM# 23.[facility] SET FOR 12PM S/W MARIANGEL [id number]. S/W PATIENTS FAMILY, SNEHAL LOPEZ, WHO IS IN AGREEMENT WITH DISCHARGE PLAN.
--- NOTE | 2020-05-06 10:44 | NUR ---
*-*DISCHARGE PLANNED*-* PATIENT HAS BEEN ACCEPTED AND WILL BE DISCHARGED TO: [facility] P: [phone] FOR NURSE TO NURSE REPORT ROOM# 23.[facility] SET FOR 12PM S/W MARIANGEL [id number]. S/W PATIENTS FAMILY, SNEHAL LOPEZ, WHO IS IN AGREEMENT WITH DISCHARGE PLAN.
--- NOTE | 2020-05-06 12:04 | NUR ---
NURSE NOTES[facility]
--- NOTE | 2020-05-06 12:30 | NUR ---
NURSE NOTES: PAtient safely discharged [facility]. Report given to Carlitos at [facility]. Patient information packet provided, patient's family notified, IV and ID wristband removed. Belongings list verified and belongings given to ambulance personnel.
--- NOTE | 2020-05-06 12:51 | General Progress Note ---
Subjective ROS Limited/Unobtainable: No Allergies: Coded Allergies: No Known Allergies (Unverified , 04/29/20) Objective Last 24 Hour Vital Signs Date Time Temp Pulse Resp B/P (MAP) Pulse Ox O2 Delivery O2 Flow Rate FiO2 05/06/20 09:32 158/73 05/06/20 09:00 Room Air 05/06/20 08:00 98.5 78 20 158/73 (101) 95 05/06/20 04:00 98.7 82 17 128/57 (80) 96 05/06/20 00:00 98.9 72 19 143/68 (93) 94 05/05/20 21:00 Room Air 05/05/20 20:00 98.3 87 20 131/66 (87) 97 05/05/20 16:00 98.6 78 18 138/69 (92) 97 Intake and Output 05/05/20 05/06/20 19:00 07:00 Intake Total 480 ml Output Total 800 ml 1100 ml Balance -320 ml -1100 ml Intake Oral 480 ml Output Urine Total 800 ml 1100 ml # Voids 1 Laboratory Tests 05/06/20 05:14: POC Whole Blood Glucose 125H 05/06/20 07:32: White Blood Count 6.1, Red Blood Count 3.77L, Hemoglobin 11.5L, Hematocrit 35.1L , Mean Corpuscular Volume 93, Mean Corpuscular Hemoglobin 30.6, Mean Corpuscular Hemoglobin Concent 32.8, Red Cell Distribution Width 15.2H, Platelet Count 287, Mean Platelet Volume 6.4L, Neutrophils (%) (Auto) 77.1H, Lymphocytes (%) (Auto) 14.8L, Monocytes (%) (Auto) 6.0, Eosinophils (%) (Auto) 1.3, Basophils (%) (Auto) 0.7, Sodium Level 141, Potassium Level 3.5, Chloride Level 106, Carbon Dioxide Level 28, Anion Gap 7, Blood Urea Nitrogen 11, Creatinine 0.8, Estimat Glomerular Filtration Rate > 60, Glucose Level 154H, Calcium Level 9.0, Phosphorus Level 3.6, Magnesium Level 1.7L Height (Feet): 5 Height (Inches): 5 Weight (Pounds): 120 General Appearance: no apparent distress EENT: normal ENT inspection Neck: supple Cardiovascular: normal rate Respiratory/Chest: decreased breath sounds Abdomen: normal bowel sounds, non tender, soft Extremities: non-tender Assessment/Plan Problem List: (1) GI bleed ICD Codes: K92.2 - Gastrointestinal hemorrhage, unspecified SNOMED: 84387032 (2) Anemia ICD Codes: D64.9 - Anemia, unspecified SNOMED: 241452323 Qualifiers: Qualified Codes: D64.9 - Anemia, unspecified (3) Hyperglycemia due to type 2 diabetes mellitus ICD Codes: E11.65 - Type 2 diabetes mellitus with hyperglycemia SNOMED: 201810549347572, 13781214 Qualifiers: Qualified Codes: E11.65 - Type 2 diabetes mellitus with hyperglycemia (4) Hypertension ICD Codes: I10 - Essential (primary) hypertension SNOMED: 02936533, 89855089 Qualifiers: Qualified Codes: I10 - Essential (primary) hypertension Assessment/Plan: s/p EGD and colonoscopy 1. Gastritis status post biopsy. 2. One colonic polyp removed, see above for details. 3. Scattered diverticulosis of left colon. 4. Small rectal ulceration. 5. Internal hemorrhoids. RECOMMENDATIONS: Follow biopsy results and treat accordingly. The patient to be seen by Hematology for further evaluation of cause of anemia either as inpatient or outpatient. Jann Duong MD May 06, 2020 12:51
--- NOTE | 2020-05-06 13:47 | NUR ---
INSURANCE CLINICALS/REVIEW FAXED TO [facility] ph# [phone] fax#[phone] [facility] ph#[phone] fax# [phone]
--- NOTE | 2020-05-09 15:36 | Discharge Summary ---
Discharge Summary Discharge Summary _ Date of admission: 04/30/2020 Date of discharge: 05/06/[address] Duff History of Present Illness and Brief Hospital Course Mr. Horne is an 79-year-old male with past medical history of hypertension, who was sent to ED from SNF for evaluation of low hemoglobin. His initial laboratory studies revealed that his hemoglobin was 7.1 on arrival. Patient had no complaints. Patient was reported to test negative for COVID-19 on 04/07/2020 at his facility. Patient received 2 units of transfusions and his hemoglobin improved. He was admitted to the hospital for further management and work-up. Patient was found to have persistent singultus. A chest x-ray revealed atelec tasis. Thorazine was considered but was held due to concern for dizziness. Patient saturation remained stable on room air. Patient was noted to have prior history of GI bleeding. The stool occult blood was negative. Patient was found to have no acute GI bleed. Patient underwent endoscopy and colonoscopy. Gastritis was identified and the tissue was biopsied. The gastritis was noted to be mild and chronic. The biopsied tissue was negative for intestinal metaplasia, dysplasia, malignancy, or Helicobacter. One colonic polyp was removed. The biopsied polyp showed no evidence of dysplasia or malignancy. Scattered diverticulosis of left colon, small rectal ulceration, and internal hemorrhoids were identified during the procedure. Patient's H&H remained stable. Patient was medically stable for discharge and was discharged back to SNF on 05/06/2020. Consultants: Hematology oncology Dr. Gonzalez Pulmonology Dr. Altamirano Surgery Dr. Oropeza Discharge Condition Improved and stable Final diagnoses Hypertension Type 2 diabetes with hyperglycemia Anemia Persistent singultus Atelectasis Gastritis History of BPH Dementia Internal hemorrhoid Diverticulosis Rectal ulceration I have been assigned to dictate discharge summary for this account. Mikal Horne May 09, 2020 15:36
== END 2020-05-06 12:41 | DRG 378 ==
LOC: EDBD 23:01 → EMR 23:28 → 4E 04-30 00:05 → EDBEDREQ 04-30 01:45 → 4E 05-04 10:00
PROC: 30233N1 Transfusion of Nonautologous Red Blood Cells into Peripheral Vein, Percutaneous Approach (ICD-10-PCS; principal; 2020-05-03 07:16)
PROC: 0DB78ZX Excision of Stomach, Pylorus, Via Natural or Artificial Opening Endoscopic, Diagnostic (ICD-10-PCS; principal; 2020-05-03 07:16)
PROC: 0DBN8ZZ Excision of Sigmoid Colon, Via Natural or Artificial Opening Endoscopic (ICD-10-PCS; principal; 2020-05-03 07:16)
DX: K29.71 Gastritis, unspecified, with bleeding (principal); J98.11 Atelectasis; K62.6 Ulcer of anus and rectum; D50.0 Iron deficiency anemia secondary to blood loss (chronic); I10 Essential (primary) hypertension; E11.65 Type 2 diabetes mellitus with hyperglycemia; F03.90 Unspecified dementia, unspecified severity, without behavioral disturbance, psychotic disturbance, mood disturbance, and anxiety; K57.30 Diverticulosis of large intestine without perforation or abscess without bleeding; Z79.01 Long term (current) use of anticoagulants; E78.5 Hyperlipidemia, unspecified; N40.0 Benign prostatic hyperplasia without lower urinary tract symptoms; R06.6 Hiccough; K64.8 Other hemorrhoids; Z79.4 Long term (current) use of insulin
CPT/HCPCS: 36415; 71045; 80048; 80053; 82150; 82270; 82378; 82607; 82728; 82746; 82962; 83540; 83550; 83690; 83735; 84100; 85007; 85025; 85044; 85610; 85651; 85730; 86140; 86850; 86900; 86901; 86920; 87081; 94003; 94150; 99285; J1815; J7030; J8499